=== PATIENT | female | born 1980 | race Caucasian/White ===

== ENCOUNTER 2022-04-03 10:46 | Outpatient (REF) | payer MEDICARE, MEDICAID, SELFPAY ==
--- NOTE | ~2022-04-03 | MM_ITS ---
EXAMINATION: MM SCREENING DIGITAL BREAST TOMOSYNTHESIS, BILATERAL CLINICAL INFORMATION: Screening. Asymptomatic. Age 41. No prior breast imaging. Family history breast cancer, maternal grandmother. The lifetime risk of breast cancer based on the Tyrer-Cuzick Model is 11%. COMPARISON: None (current study represents initial baseline exam). TECHNIQUE: Digital breast tomosynthesis is performed in both the craniocaudal and mediolateral oblique views along with computer-aided detection (CAD). Synthesized 2D images are generated from the tomosynthesis. Additional bilateral CC and left MLO view are provided. FINDINGS: There are scattered areas of fibroglandular density (ACR BI-RADS breast composition Category b). There are no significant masses, abnormal calcifications, or other abnormalities. The axilla and skin contours are unremarkable. MM/MM tomosynthesis screening BI IMPRESSION: No mammographic evidence of malignancy. ASSESSMENT: BI-RADS 1: Negative RECOMMENDATION: Routine annual mammography screening. This patient's information was entered into a reminder system with a target due date for their next mammogram.
== END 2022-04-03 10:47 | disposition home or self-care (01) ==
LOC: HO.MAMMO 10:46
PROVIDERS: PCP Physician Assistant; Visit Provider Physician Assistant
DX: Z12.31 Encounter for screening mammogram for malignant neoplasm of breast (principal)
CPT/HCPCS: 77063; 77067

== ENCOUNTER 2022-05-22 10:59 | Outpatient (REF) | payer MEDICARE, MEDICAID, SELFPAY ==
[2022-05-22 11:54] LABS: Hemoglobin 12.8 g/dl (12.0-16.0); Mean Corpuscular Hemoglobin 26.4 pg (27.0-33.0); Mean Corpuscular Volume 82.6 fL (80.0-98.0); Platelet Count 229 X10*3/uL (160-400); Red Blood Count 4.84 X10*6/uL (4.20-5.50); White Blood Count 4.7 X10*3/uL (4.8-10.8)
[2022-05-22 12:02] LABS: Estimated Average Glucose 114 mg/dL; Hemoglobin A1c % 5.6 %
[2022-05-22 12:51] LABS: TSH reflex Free T4 2.03 uIU/mL (0.32-4.0)
[2022-05-22 13:30] LABS: Alanine Aminotransferase 36 U/L (0-31); Albumin Level 4.3 g/dL (3.5-5.0); Alkaline Phosphatase 115 U/L (39-117); Anion Gap 12 (12-20); Aspartate Amino Transferase 23 U/L (5-31); Bilirubin Total 0.3 mg/dL (0.0-1.0); Blood Urea Nitrogen 15 mg/dL (9-16); Calcium 9.1 mg/dL (8.4-10.2); Carbon Dioxide 23 mmol/L (22-29); Chloride 108 mmol/L (96-108); Cholesterol 183 mg/dL; Estimated Glomerular Filt Rate > 60; Glucose Fasting 101 mg/dL (60-99); HDL Cholesterol 45 mg/dL; LDL Cholesterol Calculated 121 mg/dl; Potassium 4.5 mmol/L (3.3-5.1); Sodium 138 mmol/L (135-145); Triglycerides 88 mg/dL
== END 2022-05-22 11:00 | disposition home or self-care (01) ==
LOC: HO.LAB 10:59
PROVIDERS: PCP Physician Assistant; Visit Provider Physician Assistant
DX: Z13.29 Encounter for screening for other suspected endocrine disorder (principal); Z13.220 Encounter for screening for lipoid disorders; E66.09 Other obesity due to excess calories; Z68.35 Body mass index [BMI] 35.0-35.9, adult; I10 Essential (primary) hypertension
CPT/HCPCS: 36415; 80053; 80061; 83036; 84443; 85027

== ENCOUNTER 2022-05-29 10:50 | Outpatient (REF) | payer MEDICARE, MEDICAID, SELFPAY ==
--- NOTE | ~2022-05-29 | US_ITS ---
EXAMINATION: US PELVIS CLINICAL INFORMATION: Pain COMPARISON: None TECHNIQUE: Ultrasound of the pelvis is performed using both transabdominal and transvaginal transducers along with Doppler. Transvaginal imaging is performed due to inadequate visualization transabdominally. FINDINGS: Uterus: The uterus is anteverted and measures 12.5 x 4.5 x 6.4 cm in dimension. No focal uterine lesion is seen. Endometrial thickness is upper normal measuring 1.7 cm. There are prominent vessels seen in the cervix. The ovaries are normal-appearing. The right ovary measures 3 x 1.4 x 1.9 cm. The left ovary measures 3.7 x 2.1 x 2.7 cm. There is a small 1.7 x 1.4 x 2 cm simple left ovarian cyst. There is no fluid in the pelvis. US/US pelvic and transvaginal IMPRESSION: Prominent vessels seen in the cervix otherwise unremarkable exam.
== END 2022-05-29 10:51 | disposition home or self-care (01) ==
LOC: HO.US 10:50
PROVIDERS: Visit Provider Physician Assistant
DX: R10.2 Pelvic and perineal pain (principal); N83.209 Unspecified ovarian cyst, unspecified side
CPT/HCPCS: 76830; 76856

== ENCOUNTER 2023-01-10 10:20 | Outpatient (REF) | payer MEDICARE, MEDICAID, SELFPAY ==
--- NOTE | ~2023-01-10 | XR_ITS ---
EXAMINATION: XR KNEE, LEFT CLINICAL INFORMATION: Left knee pain. COMPARISON: None TECHNIQUE: Four views of the left knee. FINDINGS: There is no acute fracture or dislocation. The joint spaces are unremarkable. There is no joint effusion. Mild prepatellar soft tissue swelling. XR/XR knee LT 4V IMPRESSION: Mild prepatellar soft tissue swelling without acute underlying osseous abnormality.
--- NOTE | ~2023-01-10 | XR_ITS ---
EXAMINATION: XR FOREARM, RIGHT CLINICAL INFORMATION: Left forearm pain status injury. COMPARISON: None TECHNIQUE: AP and lateral views of the right forearm were obtained. FINDINGS: A corticated osseous density seen along the medial margin of the proximal ulnar articular surface with the humerus. The radius is intact with the soft tissues are unremarkable. XR/XR forearm RT 2V IMPRESSION: Corticated osseous density in the proximal ulna at the elbow articulation is not appear acute and could represent a nonunited ossification center or old fracture. Correlate with physical exam and trauma history.
--- NOTE | ~2023-01-10 | XR_ITS ---
EXAMINATION: CR X-RAY HAND AND WRIST RIGHT CLINICAL INFORMATION: Right hand pain status post injury. COMPARISON: None TECHNIQUE: 3 views of the right hand were obtained. FINDINGS: There is no acute fracture or dislocation. The carpal bones are normally aligned. The visualized distal radius and ulna are intact. The surrounding soft tissues are unremarkable. XR/XR hand wrist RT IMPRESSION: Unremarkable right hand and wrist.
== END 2023-01-10 10:21 | disposition home or self-care (01) ==
LOC: HO.HMGCX 10:20
PROVIDERS: PCP Physician Assistant; Visit Provider Internal Medicine
DX: S59.911A Unspecified injury of right forearm, initial encounter (principal); S69.91XA Unspecified injury of right wrist, hand and finger(s), initial encounter; S89.92XA Unspecified injury of left lower leg, initial encounter; W19.XXXA Unspecified fall, initial encounter
CPT/HCPCS: 73090; 73110; 73130; 73564

== ENCOUNTER 2023-10-03 10:55 | Outpatient (AMB) | payer MEDICARE, MEDICAID, SELFPAY ==
[2023-10-03 11:26] VITALS: BP 148/96; PULSE 68; O2SAT 98; BMI 41.2
--- NOTE | 2023-10-03 11:26 | A.OFFPC_ITS ---
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 Patient of Gavin Mcintyre presents today for right ankle and right hand pain with swelling status post fall 8 months ago review of the notes patient was seen in the walk-in clinic. Fell arm got stuck in the railing, and had to pull it out. Xrays were obtained negative for acute fracture. Patient reports ongoing right hand pain and occasionally hand swelling and difficulty with making a fist. Patient also reports right foot pain occasional swelling after fall states she feels like she twisted on the steps. Will obtain right foot and right hand x-rays to further evaluate. Patient reports pain at times is a 6 at a 10, does not take any [id number] medications for this. Patient reports that she ran out of her atenolol over month ago, blood pressure elevated office today 148/96, will send one-month supply of atenolol and patient advised to schedule annual physical appointment with primary care. Patient advised that schedule follow-up appointment with PCP. [facility] Social History Housing: Apartment Alcohol intake: current Alcohol intake frequency: holidays/special occasions only Alcohol type: beer Patient Tobacco Use Status: Current someday Tobacco user Cigarettes Per Day: 3 e-Cigarette/Vaping Use: Never Used Substance Use Type: Marijuana service: No Current occupational status: unemployed Cognitive needs: No Hearing needs: No Vision needs: No Questionnaire Thrive Questionnaire Date Thrive assessed: 03/29/22 AUDIT C Alcohol Use Questionnaire (AUDIT-C) 1. How often do you have a drink containing alcohol?: Monthly or less 2. How many drinks containing alcohol do you have on a typical day when you are drinking?: 1 or 2 3. How often do you have six or more drinks on one occasion?: Never Total Score: 1 Physical exam (Primary Care) Vital Signs: Last Vital Signs Pulse 68 10/03/23 11:26 BP 148/96 H 10/03/23 11:26 Pulse Ox 98 10/03/23 11:26 Oxygen Delivery Method Room Air 10/03/23 11:26 BMI result Body Mass Index 41.2 Tobacco/Smoking Status: Tobacco use Status Tobacco use date assessed 10/03/23 10/03/23 11:32 Patient Tobacco Use Status Current someday Tobacco 10/03/23 11:32 e-Cigarette/Vaping Use Never Used 10/03/23 11:32 Thrive Assessment: Date of Thrive Assessment Date Thrive assessed 03/29/22 10/03/23 11:32 Assessment and Plan Assessment & Plan (1) Right hand pain: Code(s): M79.641 - Pain in right hand Plan: Right hand x-ray ordered patient advised to take [id number] ibuprofen as needed for pain and inflammation. Will referred to occupational therapy. (2) Right foot pain: Code(s): M79.671 - Pain in right foot Plan: Right foot x-ray ordered. Can take [id number] ibuprofen as needed with food for pain and inflammation. (3) HTN (hypertension): Code(s): I10 - Essential (primary) hypertension Qualifiers: Hypertension type: primary hypertension Qualified Code(s): I10 - Essential (primary) hypertension Plan: One-month supply of atenolol given to patient. Follow low-salt diet exercise. Blood pressure goal less than 140/90 Plan Follow-up with PCP. Orders: Orders OT Evaluation and Treatment Today M79.641 - Pain in right hand, S69.91XA - Unspecified injury of right wrist, hand and finger(s), initial encounter XR hand RT 2V Today M79.641 - Pain in right hand XR foot RT 2V Today M79.671 - Pain in right foot Medications: New atenolol 25 mg PO DAILY 30 tabs 0RF Discontinued atenolol Discontinued Reason: Doctor's Order TAKE 1 TABLET BY MOUTH EVERY DAY FOR 30 DAYS 10 tabs 0RF I10 - Essential (primary) hypertension Coding Level of Care Code Est Pt Level 3 (68945) Diagnoses Right hand pain M79.641 Right foot pain M79.671 Primary hypertension I10 Hypertension type: primary hypertension
== END 2023-10-03 11:50 | disposition home or self-care (01) ==
PROVIDERS: PCP Physician Assistant; Visit Provider Nurse Practitioner Family
DX: M79.641 Pain in right hand (principal); M79.671 Pain in right foot; I10 Essential (primary) hypertension
CPT/HCPCS: 99213

== ENCOUNTER 2023-10-03 12:01 | Outpatient (REF) | payer MEDICARE, MEDICAID, SELFPAY ==
--- NOTE | ~2023-10-03 | XR_ITS ---
EXAMINATION: XR HAND, RIGHT XR FOOT, RIGHT CLINICAL INFORMATION: Pain in right hand and foot. COMPARISON: Right hand 01/10/2023. TECHNIQUE: 3 views of the right hand were obtained. 3 views of the right foot were obtained. FINDINGS: RIGHT HAND: Mild degenerative changes in the 1st carpometacarpal joint with joint space narrowing and hypertrophic change. Bone mineralization is normal. Mild degenerative changes with mild hypertrophic change in scattered MCP and IP joints. RIGHT FOOT: Moderate calcification along the dorsal aspect of the calcaneus at the site of the Achilles tendon insertion. Attenuation of the 5th metacarpal head with flattening, deformity and hypertrophic change of subjacent articular surfaces and medial subluxation of the proximal phalange. Faint calcification in the soft tissues medial to the distal shaft of the 5th metatarsal. XR/XR foot RT 2V IMPRESSION: 1. Mild degenerative changes right hand. 2. Attenuation and subluxation with associated changes as described at the 5th metatarsophalangeal joint. Correlation with the clinical exam recommended to determine further management. Recommend follow up imaging in 10-14 days if fracture is suspected.
--- NOTE | ~2023-10-03 | XR_ITS ---
EXAMINATION: XR HAND, RIGHT XR FOOT, RIGHT CLINICAL INFORMATION: Pain in right hand and foot. COMPARISON: Right hand 01/10/2023. TECHNIQUE: 3 views of the right hand were obtained. 3 views of the right foot were obtained. FINDINGS: RIGHT HAND: Mild degenerative changes in the 1st carpometacarpal joint with joint space narrowing and hypertrophic change. Bone mineralization is normal. Mild degenerative changes with mild hypertrophic change in scattered MCP and IP joints. RIGHT FOOT: Moderate calcification along the dorsal aspect of the calcaneus at the site of the Achilles tendon insertion. Attenuation of the 5th metacarpal head with flattening, deformity and hypertrophic change of subjacent articular surfaces and medial subluxation of the proximal phalange. Faint calcification in the soft tissues medial to the distal shaft of the 5th metatarsal. XR/XR hand RT 2V IMPRESSION: 1. Mild degenerative changes right hand. 2. Attenuation and subluxation with associated changes as described at the 5th metatarsophalangeal joint. Correlation with the clinical exam recommended to determine further management. Recommend follow up imaging in 10-14 days if fracture is suspected.
== END 2023-10-03 12:02 | disposition home or self-care (01) ==
LOC: HO.XRAY 12:01
PROVIDERS: PCP Physician Assistant; Visit Provider Nurse Practitioner Family
DX: M79.671 Pain in right foot (principal); M79.641 Pain in right hand
CPT/HCPCS: 73120; 73620

== ENCOUNTER 2023-10-31 10:41 | Outpatient (AMB) | payer MEDICARE, MEDICAID, SELFPAY ==
[2023-10-31 11:05] VITALS: BP 140/100; BMI 41.0
--- NOTE | 2023-10-31 11:05 | A.OFFPC_ITS ---
Vital Signs 3 10/31/23 11:05 Height 5 ft 9 in Weight 278 lb BMI 41.0 BP 140/100 H Blood Pressure Location Lt brachial Position Sitting Pulse Source Pulse Oximeter Oxygen Delivery Method Room Air Intake Visit Reasons: Chest Pain Intake Note: The individual has arrived with a three-month history of chest pain, along with a tingling sensation and numbness experienced in both arms. Complaint Clerk Required: No Accompanied by: Self / Same As Patient Allergies latex [LATEX] Allergy (Unknown, Verified 10/31/23 14:29) ITCHING Latex Allergy (Unknown, Uncoded 10/03/23 11:29) Unknown Medication List - Last Reconciled 10/31/23 by Can Mcintyre PA-C atenolol 25 mg PO DAILY blood pressure kit-extra large As directed hydrochlorothiazide 12.5 mg PO DAILY 30 days meloxicam 15 mg PO DAILY 30 days Tobacco use date assessed: 10/03/23 HPI Chest Pain 2 HPI0 Details Patient is a 43-year-old female here today for a follow-up visit. Patient has not been seen since 2019. Patient has a past medical history significant for hypertension, major depressive disorder, obesity. -chest pain---> Reports having chest julianna n intermittently over the last 3 months. Blood pressure elevated today. Has been experienced more anxiety as of late as she is trying to take care of for children at home. PLAN: Will send for cardiac stress testing to evaluate for cardiac ischemia on physical exertion . Right hand and wrist pain: Reports in January 2023 she injured her right wrist and hand due to a fall. 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 X-ray did show mild arthritis in her hand. Also reports having right foot and ankle pain worse with long periods of standing. Did have an x-ray of her foot recently did did show subluxation in the 5th metatarsal region. 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 .. Hypertension: Noted to have elevated blood pressures today in office. Has been compliant with her atenolol use though blood pressure continues to be elevated. Does report having some intermittent chest pains. .. [facility] Social History Housing: Apartment Alcohol intake: current Alcohol intake frequency: holidays/special occasions only Alcohol type: beer Patient Tobacco Use Status: Current someday Tobacco user Cigarettes Per Day: 3 e-Cigarette/Vaping Use: Never Used Substance Use Type: Marijuana service: No Current occupational status: unemployed Cognitive needs: No Hearing needs: No Vision needs: No Questionnaire Thrive Questionnaire Date Thrive assessed: 03/29/22 Review of Systems Const Denies headache(s) Eyes Denies loss of vision ENT Denies vertigo, Denies dizziness, Denies headache(s) and Denies sore throat Card Denies chest pain, Denies leg edema and Denies lightheadedness Resp Denies cough, Denies hemoptysis and Denies wheezing GI Denies abdominal pain, Denies melena, Denies constipation, Denies diarrhea and Denies vomiting Denies urinary frequency, Denies dysuria and Denies urinary urgency Musc Denies arthralgias, Denies joint swelling, Denies numbness and Denies tingling Neuro Denies Abnormal speech present, Denies behavioral changes, Denies vertigo, Denies dizziness, Denies headache(s), Denies loss of vision, Denies memory loss, Denies numbness and Denies tingling Psych Denies anxiety, Denies behavioral changes, Denies depression, Denies memory loss and Denies panic attacks Kavon/Lymph Denies easy bleeding and Denies easy bruising Aller/Immun Denies wheezing Physical exam (Primary Care) Vital Signs: Last Vital Signs BP 140/100 H 10/31/23 11:05 Oxygen Delivery Method Room Air 10/31/23 11:05 BMI result Body Mass Index 41.0 Tobacco/Smoking Status: Tobacco use Status Tobacco use date assessed 10/03/23 10/31/23 11:06 Patient Tobacco Use Status Current someday Tobacco 10/31/23 11:06 e-Cigarette/Vaping Use Never Used 10/31/23 11:06 Thrive Assessment: Date of Thrive Assessment Date Thrive assessed 03/29/22 10/31/23 11:06 Const General: healthy appearing, no acute distress, alert and awake Nutritional Appearance: well nourished Orientation/consciousness: oriented to person, oriented to place and oriented to time HENMT Ears: TM's normal bilaterally General nose exam: Normal nasal mucous membranes and turbinates present Eyes Conjunctivae: conjunctivae normal Sclerae: sclerae normal Pupils: Equal, round and reactive pupils present Neck Neck: Yes no lymphadenopathy and Yes no JVD Thyroid: Thyroid normal Carotids: no bruits Resp Effort & Inspection: normal respiratory effort and not tachypneic Auscultation: no crackles, no rales, no rhonchi and no wheezes Cardio Rate: regular rate Rhythm: regular rhythm Heart sounds: no murmurs and normal S1 and S2 GI Palpation (GI): Soft to palpation, nontender, no hepatomegaly and no splenomegaly Auscultation: normal bowel sounds Skin General skin exam: no rashes or lesions noted and dry skin Neuro General: oriented to person, oriented to place and oriented to time Cranial nerves: Yes Equal, round and reactive pupils present Speech: No Abnormal speech present Gait exam (Neuro): Normal gait present Motor exam (neuro): no tremor noted Extrem Right upper extremity: full ROM Left upper extremity: full ROM Hand/finger images: 2 1. NOTABLY SWOLLEN OVER THE 2ND DIGIT. 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 Right lower extremity: full ROM; no edema Left lower extremity: full ROM; no edema Psych Mental Status: mental status grossly normal Speech and movement: Normal speech and movement present Affect: normal affect Attitude: cooperative Thought process: Normal thought process present Office Procedures EKG Details: See scanned in document [id number], Complete Assessment and Plan Assessment & Plan (1) Chest pain: Code(s): R07.9 - Chest pain, unspecified Qualifiers: Chest pain type: unspecified Qualified Code(s): R07.9 - Chest pain, unspecified Plan: Unclear etiology to patient's chest pain though has been evident per patient over the last 3 months and has been intermittent. On physical exam it is reproducible to pressing over the left upper chest. Likely related to her anxiety and or her elevated blood pressure readings. Will add on hydrochlorothiazide to her blood pressure regime to for better blood pressure control. Advised to monitor blood pressure at home with goal blood pressure be below 140/90 Otherwise will send for cardiac stress testing to evaluate for any cardiac ischemia on physical exertion. 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 Will supply patient with meloxicam to use on a p.r.n. basis for the inflammation and pain. (3) Right wrist tendinitis: Code(s): M77.8 - Other enthesopathies, not elsewhere classified (4) Impaired glucose metabolism: Code(s): R73.09 - Other abnormal glucose Plan: Does have a history of impaired glucose metabolism. Will recheck her fasting blood sugar and A1c to evaluate Orders: Orders 2 CA stress test Today R07.9 - Chest pain, unspecified OT Evaluation and Treatment Today M79.641 - Pain in right hand Comprehensive [place]. Panel Fast Today I10 - Essential (primary) hypertension Hemoglobin A1c Today I10 - Essential (primary) hypertension, R73.09 - Other abnormal glucose Microalbumin, Random (w Creat) Today I10 - Essential (primary) hypertension Complete Blood Count no Diff Today I10 - Essential (primary) hypertension AMB EKG-In Office Today R07.9 - Chest pain, unspecified, Z01.818 - Encounter for other preprocedural examination Referrals 2 Orthopedics Referral M77.8 - Other enthesopathies, not elsewhere classified, M79.641 - Pain in right hand Medications: New 2 hydrochlorothiazide 12.5 mg PO DAILY 30 tabs 3RF 30 days I10 - Essential (primary) hypertension meloxicam 15 mg PO DAILY 30 tabs 2RF 30 days M77.8 - Other enthesopathies, not elsewhere classified Coding Level of Care Code Est Pt Level 4 (59067) Diagnoses Chest pain, unspecified type R07.9 Chest pain type: unspecified Right hand pain M79.641 Right wrist tendinitis M77.8 Impaired glucose metabolism R73.09 CPT Codes EKG - CPT: 44088-[id number], Complete ([id number])
== END 2023-10-31 12:07 | disposition home or self-care (01) ==
PROVIDERS: PCP Physician Assistant; Visit Provider Physician Assistant
DX: R07.9 Chest pain, unspecified (principal); M79.641 Pain in right hand; M77.8 Other enthesopathies, not elsewhere classified; R73.09 Other abnormal glucose
CPT/HCPCS: 93000; 99214

== ENCOUNTER 2023-11-12 09:57 | Outpatient (REF) | payer MEDICARE, MEDICAID, SELFPAY ==
[2023-11-15 02:04] LABS: HPV mRNA E6/E7 rflx Not Detected (Not Detected)
== END 2023-11-12 09:58 | disposition home or self-care (01) ==
LOC: HO.LNP 09:57
PROVIDERS: PCP Physician Assistant; Visit Provider Obstetrics & Gynecology
DX: Z01.419 Encounter for gynecological examination (general) (routine) without abnormal findings (principal); Z11.51 Encounter for screening for human papillomavirus (HPV)
CPT/HCPCS: 87624; 88142; G0101

== ENCOUNTER 2023-11-12 09:57 | Outpatient (AMB) | payer MEDICARE, MEDICAID, SELFPAY ==
--- NOTE | 2023-11-12 10:22 | A.OFFVIS_ITS ---
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 No complaints. Last Pap/HPV was negative in 03/18 Last Mammogram was BI-RADS 1 in 04/22 No previous screening colonoscopy PFSH Medical History Bipolar disorder HTN (hypertension) Surgical History H/O hernia repair Family History Maternal Grandmother Diabetes Heart disease HTN (hypertension) Cervical cancer Sister Lupus Social History Household Members: Children Housing: Apartment Alcohol intake: current Alcohol intake frequency: holidays/special occasions only Alcohol type: beer Patient Tobacco Use Status: Current someday Tobacco user Cigarettes Per Day: 3 Years Smoked: 30 e-Cigarette/Vaping Use: Never Used Substance Use Type: Marijuana service: No Current occupational status: unemployed Sexual orientation: Straight/Heterosexual Gender identity: Female Cognitive needs: No Hearing needs: No Vision needs: No Female Reproductive History Menstrual Total pregnancies: 8 Full term: 5 Number of Living Children: 5 Ab induced: 1 Ab spontaneous: 2 Date of last pap smear: 03/22/17 Date of Mammogram: 04/03/22 Review of Systems Const All systems reviewed & are unremarkable except as noted in HPI and below Card Reports as per HPI Resp Reports as per HPI GI Reports as per HPI and Reports no additional complaints Reports as per HPI Physical Exam Vital Signs: Last Vital Signs BP 136/84 11/12/23 10:23 BMI result Body Mass Index 41.0 Const General: cooperative, healthy appearing and comfortable Chest Chest palpation & inspection: normal inspection of the chest and normal palpation of entire chest wall Breast/axilla inspection: normal inspection of the breasts and normal inspection of the axillae Breast/axilla palpation: normal palpation of the breasts, normal palpation of the axillae and no axillary lymphadenopathy Resp Effort & Inspection: normal respiratory effort Auscultation: clear to auscultation bilaterally Percussion: percussion normal Cardio Palpation: normal PMI Rate: regular rate Rhythm: regular rhythm Heart sounds: no murmurs and no rubs Peripheral pulses: Peripheral pulses 2+ throughout GI Inspection: Yes normal to inspection Palpation (GI): Soft to palpation, nontender, no guarding, not rigid and No hepatosplenomegaly present Percussion: Yes normal to percussion Auscultation: normal bowel sounds Rectal Exam - Female: deferred General: Yes bladder normal to palpation External Female Exam: No lesion Speculum Exam - Vagina: normal appearance of the vagina, normal palpation, normal vaginal discharge and not erythematous Speculum Exam - Cervix: normal appearance of the cervix and normal palpation Bimanual exam- vagina & uterus: normal bimanual exam, normal palpation, uterine size normal, bladder normal to palpation, consistency normal and normal palpation Bimanual Exam- Adnexa, other: normal adnexae, no masses and no tenderness Assessment & Plan Assessment & Plan (1) Well woman exam: Code(s): Z01.419 - Encounter for gynecological examination (general) (routine) without abnormal findings Plan: Co testing done. Counseled the patient about the recommended dietary allowance of 1200 mg of Calcium & 600 IU of vitamin D. Mammogram ordered. The patient was referred to GI for screening colonoscopy . The patient was instructed to perform monthly self-breast exams and schedule annual exam in a year. All questions answered and the patient verbalized understanding. Orders: Orders MM tomosynthesis screening BI Today Z12.31 - Encounter for screening mammogram for malignant neoplasm of breast Referrals Gastroenterology Referral Z12.11 - Encounter for screening for malignant neoplasm of colon Coding Level of Care Code Est Pt Prev Care 40-64y(98101) Diagnoses Well woman exam Z01.419
[2023-11-12 10:23] VITALS: BP 136/84; BMI 41.0
== END 2023-11-12 11:07 | disposition home or self-care (01) ==
PROVIDERS: PCP Physician Assistant; Visit Provider Obstetrics & Gynecology
DX: Z01.419 Encounter for gynecological examination (general) (routine) without abnormal findings (principal)
CPT/HCPCS: G0101; Q0091

== ENCOUNTER 2023-12-24 10:30 | Outpatient (RCR) | payer MEDICARE, MEDICAID, SELFPAY ==
--- NOTE | 2023-11-07 15:14 | MHC.OT.EP ---
[address] [phone] Occupational Therapy Plan of Care Patient Name: Mimi Solomon Date of Evaluation: 11/07/23 Diagnosis: Right wrist tendonitis Right hand pain Pain Location: Pain R wrist Current: 5-6/10 Best: 3/10 Worst: 8-9/10 Pain Score: 5 Pain Scale Used: Aggravating Factors: Forceful grasp, index finger flexion, repetitive use Alleviating Factors: Hot shower Has not trialed cream, heat or ice Assessment: Pt is a 43 y/o female who reports sustaining a slip and fall down the stairs in 2022 while holding her small child in her arms. Her right wrist and forearm got stuck in the railing as the weight of her and her child pulled on her arm. X-rays were negative for acute fracture or abnormalities. X-ray did show mild arthritis. She has some soft tissue swelling over the dorsal 2nd digit and metacarpal. Pt reports she wore a wrist brace for about a month, did not receive therapy. Pain and intermittent swelling has been persistent since then. On assessment, pt. presents with pain in right volar and dorsal wrist radiating in to 2nd digit, slight edema over MCP, and intermittent numbness. Wrist and forearm ROM is WNL's, gross grasp is decreased on the Right 50# compared to 70# on the left. Pt. would benefit from short term skilled OT for tendoitis related pain and return to PLOF. Frequency and Duration: The patient will be seen 2x/wk for 4 weeks Short Term Goals: IND with thermal modalities for pain mgt IND with HEP IND with orthosis wear as needed Fpc Goals: Pain free with IADLs and handwriting IND with progression of HEP Gross grasp >65# Quick DASH <25% Treatment Plan: Therapeutic Exercise Therapeutic Activity Home Exercise Program Splinting Patient Education Edema Control Ultrasound Paraffin Fluidotherapy MHP Cold Packs Joint Mobilization Soft Tissue Mobilization Kinesiotaping Other (see comments) Trial ionto for pain management Electronically Signed By: Zully Pagan MS OTR/L Please Sign and return to therapist. Thank you once again for your referral.
== END 2024-02-07 13:05 | disposition home or self-care (01) ==
LOC: HO.OT 10:30
PROVIDERS: PCP Physician Assistant; Visit Provider Physician Assistant
DX: S69.91XA Unspecified injury of right wrist, hand and finger(s), initial encounter (principal); M79.641 Pain in right hand
CPT/HCPCS: 29125; 97033; 97035; 97110; 97140; 97165; 97760

== ENCOUNTER 2023-12-25 10:44 | Outpatient (REF) | payer MEDICARE, MEDICAID, SELFPAY ==
[2023-12-25 13:35] LABS: Rheumatoid Factor < 13.0 IU/mL (<15.0)
[2023-12-31 11:19] LABS: Anti Nuclear Antibody Screen NEGATIVE (NEGATIVE)
== END 2023-12-25 10:45 | disposition home or self-care (01) ==
LOC: HO.LAB 10:44
PROVIDERS: PCP Physician Assistant; Visit Provider Physical Medicine & Rehabilitation
DX: M79.641 Pain in right hand (principal); M79.89 Other specified soft tissue disorders; S66.511A Strain of intrinsic muscle, fascia and tendon of left index finger at wrist and hand level, initial encounter; W10.9XXA Fall (on) (from) unspecified stairs and steps, initial encounter; Y93.01 Activity, walking, marching and hiking; Y92.9 Unspecified place or not applicable; Y99.9 Unspecified external cause status
CPT/HCPCS: 36415; 86038; 86431; 99202

== ENCOUNTER 2023-12-25 10:44 | Outpatient (AMB) | payer MEDICARE, MEDICAID, SELFPAY ==
--- NOTE | 2023-12-25 10:55 | MHC.OFFVIS ---
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 States her numbness it mainly on her thumb,index and middle finger. States she feel down a flight of stairs jan 2023 and that is when her symptoms started. Reports she has has constant swelling especially on her lateral aspect of her wrist. She explains her symptoms worsens in the night time. No EMG done. Allergies latex [LATEX] Allergy (Unknown, Verified 12/25/23 11:01) ITCHING Latex Allergy (Unknown, Uncoded 12/25/23 11:01) Unknown Medication List - Last Reconciled 12/25/23 by Chikis Pérez MD atenolol 25 mg PO DAILY blood pressure kit-extra large As directed hydrochlorothiazide 12.5 mg PO DAILY 30 days meloxicam 15 mg PO DAILY 30 days HPI HPI Comments History of Present Illness Details Right handed. Fell, hyperextension and pulling of right wrist above her on stairs, Jan 2023. No fracture seen on xray. Been to PT 12 sessions. Was given wrist splints to wear at night. Pain on right MCP and digit 2. Still swollen. 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 Reported numbness on all fingertips. Not dropping things. Worse pain after exertion. Difficulty with writing. [facility] Medical History Bipolar disorder HTN (hypertension) Surgical History H/O hernia repair Family History Maternal Grandmother Diabetes Heart disease HTN (hypertension) Cervical cancer Sister Lupus Social History (Updated 12/25/23 @ 11:01 by Josie Fiore [facility]) Household Members: Children Housing: Apartment Alcohol intake: current Alcohol intake frequency: holidays/special occasions only Alcohol type: beer Patient Tobacco Use Status: Current someday Tobacco user Cigarettes Per Day: 3 Years Smoked: 30 e-Cigarette/Vaping Use: Never Used Substance Use Type: Marijuana service: No Current occupational status: unemployed and disabled 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 MSK: Inspection reveals appropriate head and neck positioning. No pain with palpation over the neck musculature. Cervical ROM was full. Spurling's sign negative. Bilateral shoulder ROM WNL. No ligamentous laxity or crepitance. No increased effusion. Swelling noted right 1st and 2nd digits, tender on IP and MCP joints on these fingers. Unable to fully flex these digits. No intrinsic hand weakness noted. No atrophy noted. Rosa Maria test negative. Carpal compression test negative. Tinel sign negative. Strength is 5/5 in all muscle groups tested. No increased tone noted. Neurological: Neurologic examination of the upper and lower extremities was nonfocal with intact sensation, muscle stretch reflexes and without focal motor deficits . López?s negative bilaterally. Gait is non-antalgic without loss of balance. Results Reviewed Results Reviewed: Ordering Physician: Cristel Santos Date of Service: 10/03/23 Procedure(s): XR hand RT 2V Accession Number(s): [id number] cc: Can Mcintyre PA-C; Cristel Santos~ EXAMINATION: XR HAND, RIGHT XR FOOT, RIGHT CLINICAL INFORMATION: Pain in right hand and foot. COMPARISON: Right hand 01/10/2023. TECHNIQUE: 3 views of the right hand were obtained. 3 views of the right foot were obtained. FINDINGS: RIGHT HAND: Mild degenerative changes in the 1st carpometacarpal joint with joint space narrowing and hypertrophic change. Bone mineralization is normal. Mild degenerative changes with mild hypertrophic change in scattered MCP and IP joints. RIGHT FOOT: Moderate calcification along the dorsal aspect of the calcaneus at the site of the Achilles tendon insertion. Attenuation of the 5th metacarpal head with flattening, deformity and hypertrophic change of subjacent articular surfaces and medial subluxation of the proximal phalange. Faint calcification in the soft tissues medial to the distal shaft of the 5th metatarsal. XR/XR hand RT 2V IMPRESSION: 1. Mild degenerative changes right hand. 2. Attenuation and subluxation with associated changes as described at the 5th metatarsophalangeal joint. Correlation with the clinical exam recommended to determine further management. Recommend follow up imaging in 10-14 days if fracture is suspected. I reviewed records from the following: PCP Assessment & Plan Assessment & Plan (1) Hand swelling: Code(s): M79.89 - Other specified soft tissue disorders (2) Strain of intrinsic muscle of finger: Code(s): S66.519A - Strain of intrinsic muscle, fascia and tendon of unspecified finger at wrist and hand level, initial encounter Plan It has already been a year since injury. If she had injured soft tissue, that should have healed by now, although she says she didn't really rest them adequately. No fracture seen on xray. MRI pending, scheduled for 01/02/24. Advised to inform us after it is done so I can look out for results. Rule out other causes of finger swelling, such as inflammatory arthritis. Checking AWAIS and RF. Assessment and plan discussed with patient, and patient was agreeable. All questions were answered thoroughly. Chikis Pérez MD, BECKY Board Certified, [place] [employer] and [employer] (ABPMR) Board Certified, [place] [employer] (ABEM) Orders: Orders AWAIS Reflex Titer and Pattern Today M79.89 - Other specified soft tissue disorders Rheumatoid Factor Today M79.89 - Other specified soft tissue disorders Coding Level of Care Code New Pt Level 4 (41339) Diagnoses Hand swelling M79.89 Strain of intrinsic muscle of finger S66.519A
[2023-12-25 10:56] VITALS: BMI 40.9
== END 2023-12-25 11:28 | disposition home or self-care (01) ==
PROVIDERS: PCP Physician Assistant; Visit Provider Physical Medicine & Rehabilitation
DX: M79.89 Other specified soft tissue disorders (principal); S66.519A Strain of intrinsic muscle, fascia and tendon of unspecified finger at wrist and hand level, initial encounter
CPT/HCPCS: 99204

== ENCOUNTER → 2024-02-03 10:00 | Outpatient (BNV) | payer MEDICARE, MEDICAID, SELFPAY | PROVIDERS: PCP Physician Assistant; Visit Provider Radiology Diagnostic Radiology | DX: Z12.31 Encounter for screening mammogram for malignant neoplasm of breast (principal) | CPT/HCPCS: 77063; 77067 ==

== ENCOUNTER 2024-02-03 10:08 | Outpatient (REF) | payer MEDICARE, MEDICAID, SELFPAY ==
--- NOTE | ~2024-02-03 | MM_ITS ---
EXAMINATION: MM SCREENING DIGITAL BREAST TOMOSYNTHESIS, BILATERAL CLINICAL INFORMATION: Screening. Asymptomatic. Patient has lump on left lateral anterosuperior breast after fall, hence patient is not concerned. COMPARISON: Mammography: 03/04/2022, baseline study. TECHNIQUE: Digital breast tomosynthesis is performed in both the craniocaudal and mediolateral oblique views along with computer-aided detection (CAD). Synthesized 2D images are generated from the tomosynthesis. FINDINGS: There are scattered areas of fibroglandular density (ACR BI-RADS breast composition Category b). There is an area of what appears to be fat necrosis in the left breast upper outer quadrant, anterior one third, resulting in a mild amount of skin dimpling, not previously seen. There is an area of fat necrosis is centrally lucent, with fat density, measuring approximately 4.4 x 2.6 x 1.7 cm (AP, TRV, CC) with surrounding rim of increased density and mild distortion in keeping with fat necrosis. These findings are new since the prior exam. Recommend six-month interval follow-up to assure appropriate evolution. There are no suspicious findings right breast. There are several lymph nodes in the right axillary tail, benign. There are no axillary abnormalities. MM/MM tomosynthesis screening BI IMPRESSION: No evidence of malignancy in either breast. Area of evolving fat necrosis in the upper outer left breast anterior one third with skin dimpling, as described above, probably benign. Recommend six-month interval diagnostic left breast mammography follow-up to assess for expected evolution. Recommend routine CC and MLO views, and spot compression CC and MLO views. No suspicious findings right breast. ASSESSMENT: BI-RADS BI-RADS 3 - Probably benign finding(s) - 6 month follow-up suggested RECOMMENDATION: 6 month interval follow-up mammography left breast. 6 Month F/U This examination should not preclude the clinical evaluation of a suspicious palpable abnormality. This patient's information was entered into a reminder system with a target due date for their next mammogram.
== END 2024-02-03 10:09 | disposition home or self-care (01) ==
LOC: HO.MAMMO 10:08
PROVIDERS: PCP Physician Assistant; Visit Provider Obstetrics & Gynecology
DX: Z12.31 Encounter for screening mammogram for malignant neoplasm of breast (principal)
CPT/HCPCS: 77063; 77067

== ENCOUNTER 2024-12-10 09:42 | Outpatient (AMB) | payer MEDICARE, MEDICAID, SELFPAY ==
--- NOTE | 2024-12-10 09:47 | MHC.PC.OV ---
Intake Visit Reasons: med follow up Allergies latex [LATEX] Allergy (Unknown, Verified 12/25/23 11:01) ITCHING Latex Allergy (Unknown, Uncoded 12/25/23 11:01) Unknown Tobacco use date assessed: 10/03/23 [facility] Medical History Bipolar disorder HTN (hypertension) Surgical History H/O hernia repair Family History Maternal Grandmother Diabetes Heart disease HTN (hypertension) Cervical cancer Sister Lupus Social History (Updated 12/25/23 @ 11:01 by Josie Fiore [facility]) Household Members: Children Housing: Apartment Alcohol intake: current Alcohol intake frequency: holidays/special occasions only Alcohol type: beer Patient Tobacco Use Status: Current someday Tobacco user Cigarettes Per Day: 3 Years Smoked: 30 e-Cigarette/Vaping Use: Never Used Substance Use Type: Marijuana service: No Current occupational status: unemployed and disabled 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
[2024-12-10 09:50] VITALS: BP 162/118; PULSE 88; O2SAT 99; BMI 40.8
--- NOTE | 2024-12-10 09:50 | A.OFFPC_ITS ---
Vital Signs 12/10/24 09:50 Height 5 ft 9 in Weight 276 lb 8 oz BMI 40.8 BP 162/118 H Blood Pressure Location Lt brachial Position Sitting Pulse 88 Pulse Source Pulse Oximeter Pulse Oximetry (%) 99 Oxygen Delivery Method Room Air Intake Visit Reasons: [place] for PE/Med review Correctional Counselor Required: No Accompanied by: Self / Same As Patient Allergies latex [LATEX] Allergy (Unknown, Verified 12/10/24 10:01) ITCHING Latex Allergy (Unknown, Uncoded 12/10/24 10:01) Unknown Medication List - Last Reconciled 12/10/24 by Can Mcintyre PA-C atenolol 25 mg PO DAILY 30 days blood pressure kit-extra large As directed hydrochlorothiazide 12.5 mg PO DAILY 30 days meloxicam 15 mg PO DAILY 30 days Tobacco use date assessed: 12/10/24 Dental Screening Dental Screen Date: 12/10/24 Did you have a dental visit in the last 12 months?: No Did you have a dental problem in the last 6 months where you did not have access to dental care?: No Was dental information given to patient?: Patient has dentist (pt has an scheduled appt coming up) HPI [place] for PE/Med review HPI Details Patient is a 44 year-old female here today for routine annual physical. . Patient has a past medical history significant for hypertension, major depressive disorder, obesity. Concern--> The patient disclosed a history of alcohol use disorder, now in remission, and recent use of street-obtained Adderall for focusing, citing a diagnosis of ADHD and bipolar disorder. Previously, she was concerned about family substance use and has a detailed understanding of addictive behaviors. The patient is also concerned about general wellness, seeking advice on balancing her medication regime and considering her lifestyle . Right hand and wrist pain: Reports in January 2023 she injured her right wrist and hand due to a fall. 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 X-ray did show mild arthritis in her hand. She reported concerns about carpal tunnel syndrome in her hands, primarily with swelling and numbness, and indicates worsening of symptoms. A history of potential degenerative disc disease is also possible, given the chronic back discomfort described. She did do occupational therapy though felt it was not effective for her. .. Hypertension: Noted to have elevated blood pressures today in office. Has been compliant with her atenolol use though blood pressure continues to be elevated. She has not been using hydrochlorothiazide . PLAN: Will start using hydrochlorothiazide for better blood pressure control. 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 model Colorectal cancer screening: [facility] Medical History Bipolar disorder HTN (hypertension) Surgical History H/O hernia repair Family History Maternal Grandmother Diabetes Heart disease HTN (hypertension) Cervical cancer Sister Lupus Social History (Updated 12/10/24 @ 10:13 by Can Mcintyre PA-C) Household Members: Children Housing: Apartment Alcohol intake: current Alcohol intake frequency: holidays/special occasions only Alcohol type: beer Patient Tobacco Use Status: Current someday Tobacco user Cigarettes Per Day: 3 Years Smoked: 30 e-Cigarette/Vaping Use: Never Used Substance Use Type: Marijuana service: No Current occupational status: unemployed and disabled 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 1. Little interest or pleasure in doing things: more than half the days 2. Feeling down, depressed, or hopeless: more than half the days 3. Trouble falling or staying asleep, or sleeping too much: not at all 4. Feeling tired or having little energy: more than half the days 5. Poor appetite or overeating: nearly every day 6. Feeling bad about yourself - or that you are a failure or have let yourself or your family down: more than half the days 7. Trouble concentrating on things, such as reading the newspaper or watching television: not at all 8. Moving or speaking so slowly that other people could have noticed. Or the opposite - being so fidgety or restless that you have been moving around a lot more than usual: not at all 9. Thoughts that you would be better off or of hurting yourself in some way: not at all Total score: 11 87554 - PHQ-9 Billing: Yes Source: Developed by Drs. Michael Botello, Kailyn Hinds, Nino Lees and colleagues, with an educational joanna from [employer]. Thrive Questionnaire Date Thrive assessed: 12/10/24 I am a: Patient What is your living situation today?: I have a steady place to live Within the past 12 months, did the food you bought not last and you didn't have the money to get more?: Never true Within the past 12 months, did you worry whether your food would run out before you got money to buy more?: Never true Do you have trouble paying for medicines?: No Do you have trouble getting transportation to medical appointments?: No Do you have trouble paying your heating and electricity bill?: No Do you have trouble taking care of your child, family member or friend?: No Do you have trouble with day-to-day activities such as bathing, preparing meals, shopping, managing finances, etc.?: No Are you currently unemployed and looking for a job?: No Are you interested in more education?: No Please select the resources that you would like help with: None Currently or been in a relationship where the following occur: No concerns reported THRIVE Score: 0 AUDIT C Alcohol Use Questionnaire (AUDIT-C) 1. How often do you have a drink containing alcohol?: 2-4 times a month 2. How many drinks containing alcohol do you have on a typical day when you are drinking?: 5 or 6 3. How often do you have six or more drinks on one occasion?: Less than monthly Total Score: 5 SAMUEL-7 AMB Questionnaire SAMUEL-7 Date SAMUEL - 7 assessed: 12/10/24 Feeling nervous, anxious, or on edge: 1 = Several days Not being able to stop or control worryin = Several days Worrying too much about different things: 1 = Several days Trouble relaxin = Several days Being so restless that it is hard to sit still: 1 = Several days Becoming easily annoyed or irritable: 0 = Not at all Feeling afraid as if something awful might happen: 0 = Not at all Total SAMUEL-7 score (0-4 normal; 5-9 mild; 10-14 moderate; 15-21 severe): 5 Source: Developed by Drs. Michael Botello, Kailyn Hinds, Nino Lees and colleagues, with an educational joanna from [employer]. SAMUEL-7 Assessment Billing SAMUEL-7 Assessment Tool: SMAUEL-7 Assessment 30892 Review of Systems Const Denies body aches, Denies chills, Denies excessive sweating, Denies fatigue, Denies fever(s) and Denies headache(s) Eyes Denies blurry vision ENT Denies dysphagia, Denies vertigo, Denies dizziness, Denies headache(s), Denies hearing loss and Denies tinnitus Card Denies chest pain, Denies chest pain with activity, Denies syncope, Denies irregular heart rhythm and Denies dyspnea Resp Denies chest congestion, Denies cough, Denies hemoptysis, Denies dyspnea and Denies wheezing GI Denies abdominal pain, Denies melena, Denies hematochezia, Denies coffee ground emesis, Denies dysphagia, Denies diarrhea, Denies nausea and Denies vomiting Denies urinary frequency, Denies dysuria, Denies urinary hesitancy and Denies urinary urgency Musc Denies arthralgias, Denies limited range of motion, Denies muscle cramps and Denies muscle weakness Skin/Breast Denies rash and Denies skin ulcer Neuro Denies Abnormal speech present, Denies confusion, Denies vertigo, Denies dizziness, Denies syncope, Denies headache(s), Denies memory loss and Denies seizure-like activity Psych Denies anxiety, Denies confusion, Denies depression, Denies memory loss, Denies panic attacks and Denies paranoia Endo Denies excessive sweating, Denies fatigue, Denies flushing, Denies polydipsia and Denies polyuria Aller/Immun Denies wheezing Physical exam (Primary Care) Vital Signs: Last Vital Signs Pulse 88 12/10/24 09:50 BP 162/118 H 12/10/24 09:50 Pulse Ox 99 12/10/24 09:50 Oxygen Delivery Method Room Air 12/10/24 09:50 BMI result Body Mass Index 40.8 BMI Assessment/Plan discussion: High BMI High, discussed plan: lifestyle, weight reduction, dietary and physical activity Tobacco/Smoking Status: Tobacco use Status Tobacco use date assessed 12/10/24 12/10/24 09:59 Patient Tobacco Use Status Current someday Tobacco 12/10/24 10:13 e-Cigarette/Vaping Use Never Used 12/10/24 10:13 Are you ready to quit: Yes Tobacco cessation counseling provided: Yes Items discussed: Nicotine replacement Relapse Prevention: discussed the importance of a supportive environment, discussed negative mood or depression after quitting, weight gain after smoking is common and discussed dietary, exercise and/or lifestyle changes Number of minutes spent counselin CPT code: 83025 - 4-10 Minutes PHQ-9: PHQ-9 Score PHQ-9: Total score 11 12/10/24 10:06 Thrive Assessment: Date of Thrive Assessment Date Thrive assessed 12/10/24 12/10/24 09:58 Currently or been in a relationship where the following occur: No concerns reported Const Other: Obese General: cooperative, comfortable, no acute distress, alert and awake; No confusion Orientation/consciousness: oriented to person, oriented to place, patient oriented x3 and No confusion HENMT Head: Yes normocephalic Ears: external ears normal and TM's normal bilaterally Face and sinus: No sinus tenderness Mouth: Normal oral and palatal mucosa present and tongue normal Teeth and gingiva: dentition normal and gingiva normal Throat: Yes posterior oropharynx normal, Yes tonsils normal and Yes uvula midline Eyes Conjunctivae: conjunctivae normal Sclerae: sclerae normal Pupils: Equal, round and reactive pupils present EOM: EOMs intact bilaterally Direct Ophthalmoscopy: No no photophobia Neck Neck: Yes no lymphadenopathy, No tender and Yes no JVD Thyroid: Thyroid normal Carotids: no bruits Chest Chest palpation & inspection: no tenderness Resp Effort & Inspection: normal respiratory effort, no audible wheezes, not labored and no stridor Auscultation: no crackles, no rales, no rhonchi and no wheezes Cardio Jugular venous distension: no JVD Rate: regular rate, not bradycardic and not tachycardic Rhythm: regular rhythm Bruits: no carotid bruits Peripheral pulses: Peripheral pulses 2+ throughout GI Inspection: Yes normal to inspection, No abdominal wall ecchymosis and No visible herniation Palpation (GI): Soft to palpation, nontender, no guarding, not rigid and No hepatosplenomegaly present Auscultation: normoactive bowel sounds General: Yes no CVA tenderness Back/Spine/Pelvis Back: no CVA tenderness and No back tenderness Cervical Spine: cervical ROM normal Thoracic/Lumbar Spine: thoracic and lumbar spine normal to inspection, straight leg raise negative bilaterally, No thoraco-lumbar ROM limited and No lumbar spinal tenderness Skin Lesions: no lesions Rashes: no rashes Wounds: no wounds Neuro General: oriented to person, oriented to place, patient oriented x3, CN's II-XI intact bilaterally and No confusion Cranial nerves: Yes Equal, round and reactive pupils present and Yes Normal accommodation reflex present Cognition (Neuro): normal cognition Speech: No Abnormal speech present Gait exam (Neuro): Normal gait present Motor exam (neuro): 5/5 motor strength present throughout Extrem Right upper extremity: full ROM; no cyanosis Left upper extremity: full ROM; no cyanosis Right lower extremity: no edema Left lower extremity: no edema Psych Appearance: grossly normal Mental Status: mental status grossly normal Affect: normal affect Attitude: cooperative Thought process: Normal thought process present Office Procedures Flu Questionnaire Does the patient have a severe egg allergy?: No Immunizations Fluarix Triv [id number] (PF) 45 mcg (15 mcg x 3)/0.5 mL IM syringe Performing Provider: Can Mcintyre PA-C Performing Location: [facility] – [place] [facility] Documented (not given) by: BARBARA Murrell on 12/10/24 09:58 Reason Not Given: Patient Refused Coding Level of Care Code Est Pt Prev Care 40-64y(90842) Diagnoses Annual physical exam Z00.00 Primary hypertension I10 Hypertension type: primary hypertension Cervical spine pain M54.2 Attention deficit hyperactivity disorder (ADHD), combined type F90.2 Attention deficit-hyperactivity disorder type: combined inattentive- hyperactive Paresthesia of hand, bilateral R20.2 Impaired glucose metabolism R73.09 Thoracic spine pain M54.6 Tobacco dependence F17.200 Additional Codes SAMUEL-7 Assessment Billing - SAMUEL-7 Assessment Tool: SAMUEL-7 Assessment 24272 ([id number]) PHQ-9 - 89519 - PHQ-9 Billing: Yes ([id number]) Vital Signs *Quality* - CPT code: 64418 - 4-10 Minutes ([id number]) Assessment & Plan Assessment & Plan (1) Annual physical exam: Code(s): Z00.00 - Encounter for general adult medical examination without abnormal findings Category: Medical Plan: Per HPI (2) HTN (hypertension): Code(s): I10 - Essential (primary) hypertension Category: Medical Qualifiers: Hypertension type: primary hypertension Qualified Code(s): I10 - Essential (primary) hypertension Plan: Patient's blood pressure elevated today in office. Advised on starting hydrochlorothiazide 12.5 mg for better blood pressure control. Advised on monitoring blood pressure at home with goal blood pressure to be below 140/90. Will likely consider starting an Collin for control of her blood pressure as well. (3) Cervical spine pain: Code(s): M54.2 - Cervicalgia Category: Medical Plan: Will get x-ray to start workup. (4) ADHD: Code(s): F90.9 - Attention-deficit hyperactivity disorder, unspecified type Category: Medical Qualifiers: Attention deficit-hyperactivity disorder type: combined inattentive- hyperactive Qualified Code(s): F90.2 - Attention-deficit hyperactivity disorder , combined type Plan: We delved into psychiatric health, touching on past ADHD and bipolar diagnosis and recent use of illicit Adderall for focus. I advised against its use due to hypertensive risks. Alternative non-stimulant medications were suggested. The conversation also covered her medication regimen for psychological health, seeking further psychiatrist evaluation to address mood and attention challenges safely. (5) Paresthesia of hand, bilateral: Code(s): R20.2 - Paresthesia of skin Category: Medical Plan: Will send for EMG testing to evaluate for bilateral upper extremity carpal tunnel or cubital tunnel syndrome. Will also refer to orthopedics for evaluation and possible cortisone injection for the hand arthritis (6) Impaired glucose metabolism: Code(s): R73.09 - Other abnormal glucose Category: Medical Plan: Patient does have history of impaired glucose metabolism. Has gained weight since last office visit. Will check a fasting blood sugar and A1c to evaluate for type 2 diabetes. (7) Thoracic spine pain: Code(s): M54.6 - Pain in thoracic spine Category: Medical Plan: X-ray has been ordered (8) Tobacco dependence: Code(s): F17.200 - Nicotine dependence, unspecified, uncomplicated Category: Medical Plan: Patient does understand she needs to continue to try to quit smoking. Offered her nicotine replacement though she declines my offers at this time. Orders: Orders Influenza [id number] Immunization Today Z23 - Encounter for immunization Complete Blood Count no Diff Today Z13.1 - Encounter for screening for diabetes mellitus Hemoglobin A1c Today R20.2 - Paresthesia of skin XR thoracic spine 3V Today M54.6 - Pain in thoracic spine NE electromyogram (EMG) Today R20.2 - Paresthesia of skin Microalbumin, Random (w Creat) Today I10 - Essential (primary) hypertension Comprehensive [place]. Panel Fast Today Z13.1 - Encounter for screening for diabetes mellitus XR cervical spine 3V Today M54.2 - Cervicalgia XR chest 2V Today F17.200 - Nicotine dependence, unspecified, uncomplicated Referrals Orthopedics Referral M77.8 - Other enthesopathies, not elsewhere classified Psychiatry Outpatient Consultation Service F90.9 - Attention-deficit hyperactivity disorder, unspecified type Medications: New atomoxetine (Strattera) 40 mg PO DAILY 21 caps 0RF 3 weeks F90.9 - Attention- deficit hyperactivity disorder, unspecified type Refilled blood pressure kit-extra large As directed 1 ea 0RF I10 - Essential (primary) hypertension
== END 2024-12-10 10:40 | disposition home or self-care (01) ==
PROVIDERS: PCP Physician Assistant; Visit Provider Physician Assistant
DX: Z00.00 Encounter for general adult medical examination without abnormal findings (principal); I10 Essential (primary) hypertension; M54.2 Cervicalgia; F90.2 Attention-deficit hyperactivity disorder, combined type; R20.2 Paresthesia of skin; R73.09 Other abnormal glucose; M54.6 Pain in thoracic spine; F17.210 Nicotine dependence, cigarettes, uncomplicated

== ENCOUNTER 2024-12-10 09:42 | Outpatient (REF) | payer MEDICARE, MEDICAID, SELFPAY ==
--- NOTE | ~2024-12-10 | XR_ITS ---
CLINICAL HISTORY: M54.6 - Pain in thoracic spine 4 views thoracic spine Comparison: None Findings: Normal alignment. No acute fractures or dislocation. Multiple level degenerative disc changes. IMPRESSION: No acute findings. This document has been electronically signed by: Arei Coffey MD on 12/11/2024 07:59:31
--- NOTE | ~2024-12-10 | XR_ITS ---
CLINICAL HISTORY: F17.200 - Nicotine dependence, unspecified, uncomplicated 2 view chest x-ray Comparison: None Findings: No consolidation or effusion. Normal size heart. No acute fracture. IMPRESSION: 1. No acute findings. This document has been electronically signed by: Arie Coffey MD on 12/11/2024 07:59:46
--- NOTE | ~2024-12-10 | XR_ITS ---
CLINICAL HISTORY: M54.2 - Cervicalgia 3 views cervical spine Comparison: None Findings: Normal vertebral body alignment. No acute fractures or dislocation. Multiple level degenerative disc change. No prevertebral soft tissue swelling. IMPRESSION: No acute findings. This document has been electronically signed by: Arie Coffey MD on 12/11/2024 08:00:20
== END 2024-12-10 09:43 | disposition home or self-care (01) ==
LOC: HO.XRAY 09:42
PROVIDERS: PCP Physician Assistant; Visit Provider Physician Assistant
DX: Z00.00 Encounter for general adult medical examination without abnormal findings (principal); I10 Essential (primary) hypertension; M54.2 Cervicalgia; F90.2 Attention-deficit hyperactivity disorder, combined type; R20.2 Paresthesia of skin; R73.09 Other abnormal glucose; M54.6 Pain in thoracic spine; F17.210 Nicotine dependence, cigarettes, uncomplicated; Z28.21 Immunization not carried out because of patient refusal
CPT/HCPCS: 71046; 72040; 72072; 96127; 99396

== ENCOUNTER → 2024-12-10 10:53 | Outpatient (BNV) | payer MEDICARE, MEDICAID, SELFPAY | PROVIDERS: PCP Physician Assistant; Visit Provider Specialist | DX: M54.6 Pain in thoracic spine (principal); M54.2 Cervicalgia; Z12.2 Encounter for screening for malignant neoplasm of respiratory organs; F17.200 Nicotine dependence, unspecified, uncomplicated | CPT/HCPCS: 71046; 72040; 72072 ==

== ENCOUNTER 2024-12-11 11:47 | Outpatient (REF) | payer MEDICARE, MEDICAID, SELFPAY ==
[2024-12-11 12:42] LABS: Hematocrit 40.3 % (37.0-47.0); Hemoglobin 13.2 g/dl (12.0-16.0); Mean Corpuscular HGB Conc 32.8 g/dl (31.0-35.0); Mean Corpuscular Hemoglobin 26.7 pg (27.0-33.0); Mean Corpuscular Volume 81.4 fL (80.0-98.0); Mean Platelet Volume 9.7 fL (9.4-12.3); Platelet Count 278 X10*3/uL (160-400); Red Blood Count 4.95 X10*6/uL (4.20-5.50); Red Cell Distribution Width 14.1 % (11.0-16.0); White Blood Count 4.5 X10*3/uL (4.8-10.8)
[2024-12-11 13:02] LABS: Estimated Average Glucose 111 mg/dL; Hemoglobin A1C 123.8008 umol/L; Hemoglobin A1c % 5.5 % (<6.0); Total Hemoglobin (HGBA1C) 3422.1902 umol/L
[2024-12-11 13:16] LABS: Alanine Aminotransferase 29 U/L (0-31); Albumin Level 4.4 g/dL (3.5-5.0); Alkaline Phosphatase 114 U/L (39-117); Anion Gap 11 (12-20); Aspartate Amino Transferase 24 U/L (5-31); Bilirubin Total 0.4 mg/dL (0.0-1.0); Blood Urea Nitrogen 15 mg/dL (9-16); Calcium 9.4 mg/dL (8.4-10.2); Carbon Dioxide 26 mmol/L (22-29); Chloride 107 mmol/L (96-108); Estimated Glomerular Filt Rate > 60; Glucose Fasting 103 mg/dL (60-99); Potassium 4.1 mmol/L (3.3-5.1); Sodium 140 mmol/L (135-145); Total Protein 7.4 g/dL (6.5-8.0)
[2024-12-11 13:28] LABS: Creatinine Urine 211.47 mg/dL; Microalbum/Creatinine Ratio Ur 19.8 ug/mg cr (<30)
== END 2024-12-11 11:48 | disposition home or self-care (01) ==
LOC: HO.LAB 11:47
PROVIDERS: PCP Physician Assistant; Visit Provider Physician Assistant
DX: R20.2 Paresthesia of skin (principal); Z13.1 Encounter for screening for diabetes mellitus; I10 Essential (primary) hypertension
CPT/HCPCS: 36415; 80053; 82043; 82570; 83036; 85027

== ENCOUNTER 2025-01-11 10:59 | Outpatient (AMB) | payer MEDICARE, MEDICAID, SELFPAY ==
--- NOTE | 2025-01-11 10:57 | A.OFFPC_ITS ---
Intake Visit Reasons: telehealth ( f/u ADHD) Research Clerk Required: No Information Interpreted: non-clinical & clinical Freelance Writer: Not Required per policy Accompanied by: Self / Same As Patient Allergies latex [LATEX] Allergy (Unknown, Verified 01/11/25 11:56) ITCHING bupropion [From Wellbutrin SR] Adverse Reaction (Intermediate, Verified 01/11/25 11:56) sleepiness Latex Allergy (Unknown, Uncoded 01/11/25 11:56) Unknown Medication List - Last Reconciled 01/11/25 by Can Mcintyre PA-C atenolol 25 mg PO DAILY 30 days atomoxetine (Strattera) 40 mg PO DAILY 3 weeks blood pressure kit-extra large As directed hydrochlorothiazide 12.5 mg PO DAILY 30 days meloxicam 15 mg PO DAILY 30 days Tobacco use date assessed: 12/10/24 Dental Screening Dental Screen Date: 12/10/24 HPI telehealth ( f/u ADHD) HPI Details Patient is a 44-year-old female being evaluated today via telephone. At last visit we discussed her ADHD symptoms and was started on Strattera 40 mg. She reports the Strattera has been a bit helpful as she has been able to focus a bit better though has been noting headaches. She is willing to try to go up on the dose of Strattera to 60 mg to see medication work better. As far as her blood pressure she reports she has been taking hydrochlorothiazide more consistently. She has been a bit more physically active riding her bike and getting a house more. PENDING SALE TO [facility] Medical History Bipolar disorder HTN (hypertension) Surgical History H/O hernia repair Family History Maternal Grandmother Diabetes Heart disease HTN (hypertension) Cervical cancer Sister Lupus Social History Household Members: Children Housing: Apartment Alcohol intake: current Alcohol intake frequency: holidays/special occasions only Alcohol type: beer Patient Tobacco Use Status: Current someday Tobacco user Cigarettes Per Day: 3 Years Smoked: 30 Packs per year/per ci.50 e-Cigarette/Vaping Use: Never Used Substance Use Type: Marijuana service: No Current occupational status: unemployed and disabled 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 1. Little interest or pleasure in doing things: not at all 2. Feeling down, depressed, or hopeless: not at all 3. Trouble falling or staying asleep, or sleeping too much: not at all 4. Feeling tired or having little energy: not at all 5. Poor appetite or overeating: not at all 6. Feeling bad about yourself - or that you are a failure or have let yourself or your family down: not at all 7. Trouble concentrating on things, such as reading the newspaper or watching television: not at all 8. Moving or speaking so slowly that other people could have noticed. Or the opposite - being so fidgety or restless that you have been moving around a lot more than usual: not at all 9. Thoughts that you would be better off or of hurting yourself in some way: not at all Total score: 0 Depression Screening Interpretation: Negative Depression Screening Done: Yes 16925 - PHQ-9 Billing: Yes Source: Developed by Drs. Michael Botello, Kailyn Hinds, Nino Lees and colleagues, with an educational joanna from [employer]. Thrive Questionnaire Date Thrive assessed: 01/11/25 I am a: Patient What is your living situation today?: I have a steady place to live Within the past 12 months, did the food you bought not last and you didn't have the money to get more?: Never true Within the past 12 months, did you worry whether your food would run out before you got money to buy more?: Never true Do you have trouble paying for medicines?: No Do you have trouble getting transportation to medical appointments?: No Do you have trouble paying your heating and electricity bill?: No Do you have trouble taking care of your child, family member or friend?: No Do you have trouble with day-to-day activities such as bathing, preparing meals, shopping, managing finances, etc.?: No Are you currently unemployed and looking for a job?: No Are you interested in more education?: No Please select the resources that you would like help with: None Currently or been in a relationship where the following occur: No concerns reported THRIVE Score: 0 AUDIT C Alcohol Use Questionnaire (AUDIT-C) 1. How often do you have a drink containing alcohol?: Never 3. How often do you have six or more drinks on one occasion?: Never Total Score: 0 SAMUEL-7 AMB Questionnaire SAMUEL-7 Date SAMUEL - 7 assessed: 01/11/25 Feeling nervous, anxious, or on edge: 0 = Not at all Not being able to stop or control worryin = Not at all Worrying too much about different things: 0 = Not at all Trouble relaxin = Not at all Being so restless that it is hard to sit still: 0 = Not at all Becoming easily annoyed or irritable: 0 = Not at all Feeling afraid as if something awful might happen: 0 = Not at all Total SAMUEL-7 score (0-4 normal; 5-9 mild; 10-14 moderate; 15-21 severe): 0 Source: Developed by Drs. Michael Botello, Kailyn Hinds, Nino Lees and colleagues, with an educational joanna from [employer]. SAMUEL-7 Assessment Billing SAMUEL-7 Assessment Tool: SAMUEL-7 Assessment 87311 Review of Systems Const Reports headache(s) Eyes Denies loss of vision ENT Denies vertigo, Denies dizziness, Reports headache(s) and Denies sore throat Card Denies chest pain, Denies leg edema and Denies lightheadedness Resp Denies cough, Denies hemoptysis and Denies wheezing GI Denies abdominal pain, Denies melena, Denies constipation, Denies diarrhea and Denies vomiting Denies urinary frequency, Denies dysuria and Denies urinary urgency Musc Denies arthralgias, Denies joint swelling, Denies numbness and Denies tingling Neuro Denies behavioral changes, Denies vertigo, Denies dizziness, Reports headache(s), Denies loss of vision, Denies memory loss, Denies numbness and Denies tingling Psych Denies anxiety, Denies behavioral changes, Denies depression, Denies memory loss and Denies panic attacks Kavon/Lymph Denies easy bleeding and Denies easy bruising Aller/Immun Denies wheezing Physical exam (Primary Care) Tobacco/Smoking Status: Tobacco use Status Tobacco use date assessed 12/10/24 01/11/25 10:58 Patient Tobacco Use Status Current someday Tobacco 01/11/25 10:58 e-Cigarette/Vaping Use Never Used 01/11/25 10:58 PHQ-9: PHQ-9 Score PHQ-9: Total score 0 01/11/25 11:51 Depression Screening Interpretation: Negative Thrive Assessment: Date of Thrive Assessment Date Thrive assessed 01/11/25 01/11/25 10:58 Currently or been in a relationship where the following occur: No concerns reported Telehealth Telehealth Telehealth Platform: Telephone Location of provider rendering services: practice address Location of patient: address on file Patient Identification confirmed using: Name, : Yes Telehealth method: voice only Patient verbally consented to treatment: Yes Patient verbally consented to billing insurance company: Yes Patient informed of any privacy concerns related to visit: Yes Minutes spent on Phone/Video with Pt.: 11 Coding Level of Care Code Tele Est Pt Level 4 (74236) Diagnoses Attention deficit hyperactivity disorder (ADHD), combined type F90.2 Attention deficit-hyperactivity disorder type: combined inattentive- hyperactive Primary hypertension I10 Hypertension type: primary hypertension Additional Codes SAMUEL-7 Assessment Billing - SAMUEL-7 Assessment Tool: SAMUEL-7 Assessment 23484 ([id number]) PHQ-9 - 83708 - PHQ-9 Billing: Yes ([id number]) Assessment & Plan Assessment & Plan (1) ADHD: Code(s): F90.9 - Attention-deficit hyperactivity disorder, unspecified type Category: Medical Qualifiers: Attention deficit-hyperactivity disorder type: combined inattentive- hyperactive Qualified Code(s): F90.2 - Attention-deficit hyperactivity disorder, combined type Plan: Patient has started Strattera 40 mg and feels it has helped her with some attention and focus though has slowed down a bit. She feels a little more unproductive. She is willing to increase dose of Strattera to 60 mg to see if it will help a bit more. She does report having a bit of a side effect of headache though has been manageable. She has a psychiatrist in [place] he will start to discuss her ADHD symptoms with as well. We are avoiding stimulant ADHD medication due to patient's blood pressure (2) HTN (hypertension): Code(s): I10 - Essential (primary) hypertension Category: Medical Qualifiers: Hypertension type: primary hypertension Qualified Code(s): I10 - Essential (primary) hypertension Plan: Patient reports her blood pressure has been better with more consistent use of hydrochlorothiazide. She reports she has been more physically active lately in trying to reduce her weight. Will continue with hydrochlorothiazide for now with goal blood pressure to remain below 140/90 Medications: New atomoxetine (Strattera) 60 mg PO DAILY 28 caps 3RF 28 days F90.2 - Attention- deficit hyperactivity disorder, combined type Discontinued atomoxetine (Strattera) Discontinued Reason: Doctor's Order 40 mg PO DAILY 3 weeks 21 caps 1RF F90.9 - Attention-deficit hyperactivity disorder, unspecified type
--- OUTSIDE RECORDS SUMMARY | 2025-01-11 12:06 | XMS_ITS | Data Portability ---
Author Organization [facility], [facility] () Address [address], [address] [place] [address] Assessment No assessment recorded. Plan of Treatment Reminders Order Date Submit Date Provider Last Modified By Organization Details Last Modified Time Details Appointments None record ed. Lab None record ed. Referral None record ed. Procedures None record ed. Surgeries None record ed. Imaging None record ed. Medication Orders None record ed. Patient TargetsNo targets recorded. Patient InstructionsNo instructions recorded. Reason for Referral None Reported. Medical Equipment None Reported. Medications Name Sig Start Date Stop Date Status Note LastModified by Organization Details LastModified Time gabapentin 600 mg tablet active Not Available Not Availabl e Not Available atenolol 25 mg tablet active Not Available Not Available No t Available trazodone 100 mg tablet active Not Available Not Available No t Available Vitals None Recorded Social History None recorded. Functional Status None recorded. Mental Status None recorded. Family History Nothing Reported. Medical History No medical history recorded. Gynecological HistoryNo gynecological history recorded. Obstetrics History GPAL:G 0 P 0 0 0 0 Past Encounters Encounter ID Performer Location Encounter Start Date Encounter Closed Date Diagnosis/Indication Diagnosis SNOMED-CT Code Diagnosis ICD10 Code Diagnosis Note [id number] [address] 03/03/2018 11:30:01 03/03/2018 11:58:40 Health Concerns Section Related Observation LastModified by Organization Detai ls LastModified Time None Recorded Concern Status LastModified by Organization Details LastModified Time None Recorded Advance Directives Directive None Recorded Payers Encounter Date Sequence Insurance Name Policy Number Policy Holguin Covered Member ID Holguin Member ID Guarantor Name 02/27/2018 1 [place] [employer] Mimi Solomon [id number] Mimi Solomon 02/27/2018 2 [place] [facility] Mimi Solomon [id number] Mimi Solomon OBGyn Episode No OBEpisode recorded.
--- OUTSIDE RECORDS SUMMARY | 2025-01-11 12:06 | XMS_ITS | Clinical Summary ---
Author Organization [facility] Address [address] [place] [address] Care Team Providers Care Decorator Store Name Role Phone Alexandru Cantrell MD Primary Care Provider [phone] Surgical History Surgery Date Site/Laterality Comments ESOPHAGOGASTRODUODENOSCOPY 08/25/14 [facility] propofol PROCEDURE: MS ESOPHAGOGASTRODUODENOSCOPY TRANSORAL DIAGNOSTIC; COMMENT: normal HERNIA REPAIR PROCEDURE: HISTORICAL HERNIA REPAIR/ING Medical History Medical History Date Comments GERD (gastroesophageal reflu x disease) 10/28/2013 DX:GERD (gastroesophageal re flux disease) ETOH abuse 10/28/2013 DX:ETOH abuse Anxiety 10/28/2013 DX:Anxiety Tobacco use disorder 10/28/2013 DX:Tobacco use disorder PTSD (post-traumatic stress disorder) DX:PTSD (post-traumatic stress disorder) Bipolar 2 disorder (CMS/HCC) DX: Bipolar 2 disorder (HCC) Family History Medical History Relation Name Comments Cirrhosis Father Hypertension Father Other: etoh abuse Father No Known Problems Maternal Grandfather hx unknown, states she doesnt know him Breast cancer Maternal Grandmother Diabetes Maternal Grandmother Hypertension Mother Other: etoh abuse Mother Other: inguinal hernia Mother No Known Problems Paternal Grandfather Diabetes Paternal Grandmother Emphysema Paternal Grandmother Other: cancer of unknown origin Paternal Grandmother Relation Name Status Comments Father Maternal Grandfather Maternal Grandmother Mother Alive Paternal Grandfather Paternal Grandmother Social History Tobacco Use Types Packs/Day Years Used Date Smoking Tobacco: Light Smoker Smokeless Tobacco: Never Alcohol Use Standard Drinks/Week Comments No 0 (1 standard drink = 0.6 oz pur e alcohol) Comments Unknown Sex and Gender Information Value Date Recorded Sex Assigned at Not on file Legal Sex Female 7:42 AM EST Gender Identity Not on file Sexual Orientation Not on file Obstetrics History Plan of Treatment Health Maintenance Due Date Last Done Comments Breast Cancer Screening 1978 DTaP,Tdap,and Td Vaccines (1 - Tdap) 1985 Hepatitis B Vaccines (1 of 3 - 19+ 3-dose series) 1997 Cervical Cancer Screening: P ap Smear 1999 COVID-19 Vaccine ( - 2023-2 5 season) 2024 Influenza Vaccine (#1) 2024 HIB Vaccines Aged Out No longer eligi ble based on patient's age to complete this topic HPV Vaccines Aged Out No longer eligi ble based on patient's age to complete this topic Hepatitis A Vaccines Aged Out No long er eligible based on patient's age to complete this topic IPV Vaccines Aged Out No longer eligi ble based on patient's age to complete this topic MMR Vaccines Aged Out No longer eligi ble based on patient's age to complete this topic Meningococcal ACWY Vaccine Aged Out N o longer eligible based on patient's age to complete this topic Meningococcal B Vacine Aged Out No lo nger eligible based on patient's age to complete this topic Pneumococcal Vaccine: Pediat rics (0 to 5 Years) and At-Risk Patients (6 to 64 Years) Aged Out No longer eligible b ased on patient's age to complete this topic RSV Immunization Patients Un vince 20 months Aged Out No longer eligible b ased on patient's age to complete this topic Varicella Vaccines Aged Out No longer eligible based on patient's age to complete this topic Care Teams Decorator Store Relationship Specialty Start Date End Date Alexandru Cantrell MD [address] [place] [address] PCP - General Internal Medicine 08/23/14
== END 2025-01-11 12:26 | disposition home or self-care (01) ==
LOC: HO.HMCH 10:59
PROVIDERS: PCP Physician Assistant; Visit Provider Physician Assistant
DX: I10 Essential (primary) hypertension (principal); F90.2 Attention-deficit hyperactivity disorder, combined type

== ENCOUNTER → 2025-01-11 10:59 | Outpatient (BNVA) | payer MEDICARE, MEDICAID, SELFPAY | PROVIDERS: PCP Physician Assistant; Visit Provider Physician Assistant | DX: F90.2 Attention-deficit hyperactivity disorder, combined type (principal); I10 Essential (primary) hypertension | CPT/HCPCS: 96127 ==

== ENCOUNTER 2025-01-20 13:22 | Outpatient (AMB) | payer MEDICARE, MEDICAID, SELFPAY ==
--- NOTE | 2025-01-20 13:23 | MHC.OFFVIS ---
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 Horizontal Required: No Boring Machine Operator Horizontal Services: Boring Machine Operator Horizontal Present Information Interpreted: clinical only System Technologist: System Technologist Present Allergies latex [LATEX] Allergy (Unknown, Verified 01/20/25 13:29) ITCHING bupropion [From Wellbutrin SR] Adverse Reaction (Intermediate, Verified 01/20/25 13:29) sleepiness Latex Allergy (Unknown, Uncoded 01/20/25 13:29) Unknown Medication List - Last Reconciled 01/20/25 by Leighann Maldonado CNM atenolol 25 mg PO DAILY 30 days atomoxetine (Strattera) 60 mg PO DAILY 28 days blood pressure kit-extra large As directed hydrochlorothiazide 12.5 mg PO DAILY 30 days meloxicam 15 mg PO DAILY 30 days Is last menstrual period known: Yes Last menstrual period: 01/08/25 HPI 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 She struggles with her weight. She has says she is very active she tries to eat well she is a mom of 3 and very busy around the house and loves to do active things with the kids biking and walking.. She is a smoker she feels she is doing well down to 2 or 3 cigarettes a day.. She is working on her blood pressure and it was good today. She has had numbness in her fingers and she is waiting on a nerve conduction study to see what is up with that.. She is concerned about family history of colon cancer she had an uncle and a grand parent the from colon cancer. She is due for mammogram and thinks it is scheduled but she will check on that. She also has a big concern she wants to address today in the she finds herself generally speaking not constipated in fact has 1-2 bowel movements a day and she keeps herself lose by drinking milk she is not what she would consider lactose intolerant but it helps her go to the bathroom. However when she pushes down she finds she feels the stool gets stuck and she is pushing out stool gets pushed into a pocket. She has found herself needing to digitally help herself. Her largest baby was 7 lb flus she does not remember having to push very long though perhaps she did with 1 child. [facility] Medical History Bipolar disorder HTN (hypertension) Surgical History H/O hernia repair Family History Maternal Grandmother Diabetes Heart disease HTN (hypertension) Cervical cancer Sister Lupus Social History Household Members: Children Housing: Apartment Alcohol intake: current Alcohol intake frequency: holidays/special occasions only Alcohol type: beer Patient Tobacco Use Status: Current someday Tobacco user Cigarettes Per Day: 3 Years Smoked: 30 e-Cigarette/Vaping Use: Never Used Substance Use Type: Marijuana service: No Current occupational status: unemployed and disabled 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 General: healthy appearing, comfortable, no acute distress, well developed and alert Nutritional Appearance: average body habitus Orientation/consciousness: patient oriented x3 Limitations: no limitations HEENT Head: Yes normocephalic Neck Neck: Yes normal visual inspection Chest Chest palpation & inspection: normal inspection of the chest Breast/axilla inspection: normal inspection of the breasts and normal inspection of the axillae Breast/axilla palpation: normal palpation of the breasts and normal palpation of the axillae Resp Effort & Inspection: normal respiratory effort GI Inspection: Yes normal to inspection, No Abdominal wall edema and No distended Palpation (GI): Soft to palpation and nontender Other: Vagina pink and moist redundant vaginal tissue noted cervix posterior difficult to visualize but long close thick mobile nontender uterus mobile nontender difficult to feel full contour secondary to adipose. Able to feel slight weakness in rectovaginal wall where stool is palpable approximately 4-5 inches hi in rectum. Patient performed Kegel extremely well using all associated muscles with extremely good tone and length of contraction. With elevation of structures, General: Yes bladder normal to palpation External Female Exam: normal external appearance and normal appearance of the urethra Speculum Exam - Vagina: normal appearance of the vagina, normal palpation and normal vaginal discharge Speculum Exam - Cervix: normal appearance of the cervix, normal palpation and nontender Bimanual exam- vagina & uterus: normal bimanual exam, normal palpation, uterine size normal, bladder normal to palpation, consistency normal, normal palpation, uterine mobility normal, uterine shape normal, No Cervical tenderness present, non-tender and no cervical motion tenderness Bimanual Exam- Adnexa, other: normal adnexae, no masses, normal and No adnexal tenderness Neuro General: patient oriented x3 Assessment & Plan Assessment & Plan (1) Cervical cancer screening: Code(s): Z12.4 - Encounter for screening for malignant neoplasm of cervix Category: Medical (2) Women's annual routine gynecological examination: Code(s): Z01.419 - Encounter for gynecological examination (general) (routine) without abnormal findings Category: Medical (3) HTN (hypertension): Code(s): I10 - Essential (primary) hypertension Category: Medical Qualifiers: Hypertension type: primary hypertension Qualified Code(s): I10 - Essential (primary) hypertension (4) Paresthesia of hand, bilateral: Code(s): R20.2 - Paresthesia of skin Category: Medical (5) Tobacco dependence: Code(s): F17.200 - Nicotine dependence, unspecified, uncomplicated Category: Medical (6) Family history of colon cancer: Code(s): Z80.0 - Family history of malignant neoplasm of digestive organs Category: Medical (7) Rectocele: Comment: Patient feels a weakness in her rectovaginal such that is sometimes stool bulges towards the vagina when straining. Suggest patient start with Gastroenterology as she was referred there in 2022 and has a family history of colon cancer as well that she should be screened for. Code(s): N81.6 - Rectocele Category: Medical Plan -----Discussed in this visit the following: healthy balanced diet, regular and consistent exercise, getting recommended health screens, doing the best she can for her particular health concerns, kegel exercises, pap smear screening and followup recommendations, mammography screening and SBE, normal changes in cycles in her life stage--- . See my recommendations for following up with Gastroenterology for recommendations on the rectovaginal wall weakness and colon cancer screening as well. Suggest to to patient that working on weight loss would be probably 1 of the more beneficial things that she can do overall to help additionally she is very careful to avoid constipation with her diet so that is acting in her favor currently. Recommend scheduling her mammogram. she is working one or two health issues at a time, numbness smoking and blood pressure and also the issue with circulation in her fingers and numbness and tingling and she will be having a nerve conduction study soon discussed the other contributing factors with weight. She has extremely good tone with her Kegel's so that is helping her as well. 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 I suggest she start with her children's pediatricians as if it was known that she was a carrier in their pregnancies then possibly they would have had screening. In any case the [facility] records are not currently available except through Health information Management. Timeframe/Date Comment rtc 1 yr, schedule mammo w pcc re gastroenterolgy refferral and other health issues Coding Level of Care Code Est Pt Prev Care 40-64y(70887) Diagnoses Cervical cancer screening Z12.4 Women's annual routine gynecological examination Z01.419 Primary hypertension I10 Hypertension type: primary hypertension Paresthesia of hand, bilateral R20.2 Tobacco dependence F17.200 Family history of colon cancer Z80.0 Rectocele N81.6
[2025-01-20 13:27] VITALS: BP 126/78; BMI 40.8
--- OUTSIDE RECORDS SUMMARY | 2025-01-20 13:40 | XMS_ITS | Clinical Summary ---
Author Organization [facility] Address [address] [place] [address] Care Team Providers Care High Pressure Kettle Operator Name Role Phone Alexandru Cantrell MD Primary Care Provider [phone] Surgical History Surgery Date Site/Laterality Comments ESOPHAGOGASTRODUODENOSCOPY 08/25/14 [facility] propofol PROCEDURE: [place] ESOPHAGOGASTRODUODENOSCOPY TRANSORAL DIAGNOSTIC; COMMENT: normal HERNIA REPAIR [...] 1978 DTaP,Tdap,and Td Vaccines (1 - Tdap) 1997 Hepatitis B Vaccines (1 of 3 - [...] age to complete this topic Care Teams High Pressure Kettle Operator Relationship Specialty Start Date End Date Alexandru Cantrell MD [address] [place] [address] PCP - General Internal Medicine 08/23/14
== END 2025-01-20 13:53 | disposition home or self-care (01) ==
LOC: HO.HWSM 13:22
PROVIDERS: PCP Physician Assistant; Visit Provider Advanced Practice Midwife
DX: Z01.419 Encounter for gynecological examination (general) (routine) without abnormal findings (principal)
CPT/HCPCS: G0101

== ENCOUNTER → 2025-01-20 13:22 | Outpatient (BNVA) | payer MEDICARE, MEDICAID, SELFPAY | PROVIDERS: PCP Physician Assistant; Visit Provider Advanced Practice Midwife | DX: Z01.419 Encounter for gynecological examination (general) (routine) without abnormal findings (principal); N81.6 Rectocele; I10 Essential (primary) hypertension; R20.2 Paresthesia of skin; F17.210 Nicotine dependence, cigarettes, uncomplicated; Z80.0 Family history of malignant neoplasm of digestive organs | CPT/HCPCS: G0101 ==

== ENCOUNTER 2025-01-26 07:48 | Outpatient (REF) | payer MEDICARE, MEDICAID, SELFPAY ==
--- NOTE | 2025-01-26 07:52 | EMG_ITS ---
Bilateral median and ulnar motor and sensory studies were performed. Bilateral radial sensory studies were performed. Bilateral median and lateral antecubital brachial sensory studies were performed and paraspinal muscles were tested with a needle. IMPRESSION: Moderate left and zoqb-qg-obkeimwh right median neuropathy across carpal tunnel. MD TORI Mccray/ORIANA / [id number]
--- OUTSIDE RECORDS SUMMARY | 2025-01-26 07:52 | XMS_ITS | Data Portability ---
Author Organization [facility] Maternal Medicine, OLGA LIDIA_ALAYNA FLOOD (ProfGlenn) Address [address], [address] [place] [address] Assessment No assessment recorded. Plan of Treatment [...] SNOMED-CT Code Diagnosis ICD10 Code Diagnosis Note [id number] [address] 03/03/2018 11:30:01 03/03/2018 11:58:40 Health Concerns Section Related Observation LastModified by Organization Detai ls LastModified Time None Recorded Concern Status LastModified by Organization Details LastModified Time None Recorded Advance Directives Directive None Recorded Payers Encounter Date Sequence Insurance Name Policy Number Policy Holguin Covered Member ID Holguin Member ID Guarantor Name 02/27/2018 1 [place] [employer] Mimi Solomon [id number] Mimi Solomon 02/27/2018 2 MED[place]ID[place] [facility] Mimi Solomon [id number] Mimi Solomon OBGyn Episode No OBEpisode recorded.
--- OUTSIDE RECORDS SUMMARY | 2025-01-26 07:52 | XMS_ITS | Clinical Summary ---
Author Organization [facility] Address [address] [place] [address] Care Team Providers Care Ball Point Splitter Name Role Phone Alexandru Cantrell MD Primary Care Provider [phone] Surgical History Surgery Date Site/Laterality Comments ESOPHAGOGASTRODUODENOSCOPY 08/25/14 [facility] propofol PROCEDURE: [place] ESOPHAGOGASTRODUODENOSCOPY TRANSORAL DIAGNOSTIC; COMMENT: normal HERNIA REPAIR [...] age to complete this topic Care Teams Ball Point Splitter Relationship Specialty Start Date End Date Alexandru Cantrell MD [address] [place] [address] PCP - General Internal Medicine 08/23/14
== END 2025-01-26 07:49 | disposition home or self-care (01) ==
LOC: HO.NEURO 07:48
PROVIDERS: PCP Physician Assistant; Visit Provider Physician Assistant
DX: R20.2 Paresthesia of skin (principal)
CPT/HCPCS: 95886; 95913

== ENCOUNTER 2025-02-08 | Outpatient (REF) | payer MEDICARE, MEDICAID, SELFPAY ==
--- OUTSIDE RECORDS SUMMARY | 2025-05-27 12:43 | XMS_ITS | Data Portability ---
Author Organization [facility], [facility] (Prof.) Address [address], [address] [place] [address] Assessment No assessment recorded. Plan of Treatment [...] SNOMED-CT Code Diagnosis ICD10 Code Diagnosis Note [id number] Paulo Metcalf MD [address] [address] 03/03/2018 11:30:01 03/03/2018 11:58:40 Health Concerns Section Related Observation LastModified by Organization Detai ls LastModified Time None Recorded Concern Status LastModified by Organization Details LastModified Time None Recorded Advance Directives Directive None Recorded Payers Insurance Date Sequence Insurance Name Policy Number Policy Holguin Covered Member ID Holguin Member ID Guarantor Name 04/08/2018 1 [place] [employer] Mimi Solomon [id number] Mimi Solomon 04/08/2018 2 [place] [facility] Mimi Solomon [id number] Mimi Solomon OBGyn Episode No OBEpisode recorded.
== END 2025-02-08 00:01 | disposition home or self-care (01) ==
LOC: CF
PROVIDERS: PCP Physician Assistant
DX: G56.01 Carpal tunnel syndrome, right upper limb (principal)
CPT/HCPCS: 99202

== ENCOUNTER 2025-02-08 12:58 | Outpatient (AMB) | payer MEDICARE, MEDICAID, SELFPAY ==
[2025-02-08 12:59] VITALS: BMI 40.8
--- NOTE | 2025-02-08 12:59 | A.OFFVIS_ITS ---
Vital Signs 02/08/25 12:59 Height 5 ft 9 in Weight 276 lb BMI 40.8 Intake Visit Reasons: New Pt - Rt Hand Numbness & Tingling - EMG 01/13/25 Intake Note: Mimi is a 44 year old right hand dominant female who presents today as new patient with complaints of Right Hand Numbness and Tingling. IMPRESSION: Moderate left and vkej-is-cnrscmsi right median neuropathy across carpal tunnel. Allergies latex [LATEX] Allergy (Unknown, Verified 01/20/25 13:29) ITCHING bupropion [From Wellbutrin SR] Adverse Reaction (Intermediate, Verified 01/20/25 13:29) sleepiness Latex Allergy (Unknown, Uncoded 01/20/25 13:29) Unknown HPI HPI New Pt - Rt Hand Numbness & Tingling - EMG 01/13/25: Details: Mimi is a 44 year old right hand dominant female who presents today as new patient with complaints of Right Hand Numbness and Tingling. Patient reports that this pain is intermittent, daily, worse at night. No other acute complaints or concerns this time. IMPRESSION: Moderate left and jnab-pa-arnjkvlk right median neuropathy across carpal tunnel. [facility] Medical History Bipolar disorder HTN (hypertension) Surgical History H/O hernia repair Family History Maternal Grandmother Diabetes Heart disease HTN (hypertension) Cervical cancer Sister Lupus Social History Household Members: Children Housing: Apartment Alcohol intake: current Alcohol intake frequency: holidays/special occasions only Alcohol type: beer Patient Tobacco Use Status: Current someday Tobacco user Cigarettes Per Day: 3 Years Smoked: 30 e-Cigarette/Vaping Use: Never Used Substance Use Type: Marijuana service: No Current occupational status: unemployed and disabled 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 Good APB muscle firing and good finger cross. Vascular: Capillary refill brisk. ROM: Patient can make a fist and extend all their digits. Skin: No lacerations or abrasions noted. General: No ecchymosis. No erythema or evidence of infection. Results Reviewed Results Reviewed: IMPRESSION: Moderate left and fjcg-iv-kuffyxaa right median neuropathy across carpal tunnel. MD TORI Mccray/ORIANA Assessment & Plan Assessment & Plan (1) Right carpal tunnel syndrome: Code(s): G56.01 - Carpal tunnel syndrome, right upper limb Category: Medical Plan 1. Carpal tunnel syndrome, right Symptoms intermittent, daily, worse at night I educated the patient about the condition. I discussed both operative and nonoperative treatment options. The patient would like to proceed with surgery. The risks and benefits of operative treatment were discussed with the patient and the patient wishes to proceed with surgery. These risks include, but are not limited to, risk of damage to blood vessels, nerves, tendons, infection, recurrence, incomplete relief of preoperative symptoms, persistent pain, possible need for further surgery, and the risks associated with regional blocks and/or anesthesia. Plan is to take the patient to the operating room at some point in the next few weeks for the following procedures: 1. Right carpal tunnel release under local All of the preoperative paperwork including the consent was discussed today. All of the patient's questions were answered in the clinic today. The patient understands that they will be in contact with our marine firer to discuss scheduling their procedure. Patient denies diabetes, blood thinners, asthma, heart issues, lung issues, kidney issues, or current smoking. Coding Level of Care Code New Pt Level 4 (30669) Diagnoses Right carpal tunnel syndrome G56.01
--- OUTSIDE RECORDS SUMMARY | 2025-02-08 14:33 | XMS_ITS | Clinical Summary ---
Author Organization [facility] Address [address] [place] [address] Care Team Providers Care Machine Erector Name Role Phone Alexandru Cantrell MD Primary Care Provider [phone] Surgical History Surgery Date Site/Laterality Comments ESOPHAGOGASTRODUODENOSCOPY 08/25/14 [facility] propofol PROCEDURE: [place] ESOPHAGOGASTRODUODENOSCOPY TRANSORAL DIAGNOSTIC; COMMENT: normal HERNIA REPAIR [...] age to complete this topic Care Teams Machine Erector Relationship Specialty Start Date End Date Alexandru Cantrell MD [address] [place] [address] PCP - General Internal Medicine 08/23/14
== END 2025-02-08 13:16 | disposition home or self-care (01) ==
PROVIDERS: PCP Physician Assistant
DX: G56.01 Carpal tunnel syndrome, right upper limb (principal)
CPT/HCPCS: 99204

== ENCOUNTER 2025-02-22 13:01 | Outpatient (AMB) | payer MEDICARE, MEDICAID, SELFPAY ==
--- NOTE | 2025-02-22 13:42 | A.OFFPSYCH_ITS ---
Intake Intake Visit Reasons: consultation Supervisor Paint Required: No Allergies latex [LATEX] Allergy (Unknown, Verified 01/20/25 13:29) ITCHING bupropion [From Wellbutrin SR] Adverse Reaction (Intermediate, Verified 01/20/25 13:29) sleepiness Latex Allergy (Unknown, Uncoded 01/20/25 13:29) Unknown Medication List - Last Reconciled 02/22/25 by Anita Godfrey APRN atenolol 25 mg PO DAILY atomoxetine (Strattera) 60 mg PO DAILY 28 days blood pressure kit-extra large As directed hydrochlorothiazide 12.5 mg PO DAILY 30 days meloxicam 15 mg PO DAILY 30 days HPI- Psychiatric Chief Complaint: consultation HPI Narrative: pt referred by PCP for evaulation of possible ADHD. Pt reports she was diagnosed with Bipolar Disorder and PTSD in past. She had a LD including reading comprehension delay and dyslexia. She does not recall what else; she had sepcial education classes as a child. She was in therapy at age 3 and she is not sure why. She thinks she was not on medication until age 19. She has been tried on a number of medications in the past and she can't recall the names of them except prozac gabapentin, and lithium. she reports she was tried on manyothers. she says she either had the opposite effect from them or negative side effects inclusing excessive sedation. She did not graduate from . She got at age 13 and was onher own raising her son at age 14. she has five children with five different fathers. she has good relationship with all 5 children. never had dcf involvement. she has never ebeen psychiatrically hospitalized. She used alcohol in past excessively but stopped on her own. she deos use THC twive a day and it calmsher; it has never made her paranoid, anxious or elated and impulsive. She has no histroy of angela. no period of elation, no period of sleep lessness and over productivity. no histroy of impulsive high risk behavior, no overspending, no gambling, no drug use. no periods of psychosis. pt reports periods of feeling depressed. she reports the depression often is because she is overwhelmed with activity around her,demands, noise, talking. she gets frustrated esaily but reports not feeling angry for no reason. she can get overexcited trying to get the kids out of the house for school or some other outing but once they are all on their way she feels calmer. PHQ9= 12 SAMUEL&= 2. ADHD self report scale = 18 (anything over 13 is strongly predictive of ADHD) Past Psychiatric History: no IPLOC; 15 + yrs outpt at [facility] Subjective Subjective Subjective Medication Compliance: Yes Side effects from medications: No Review of Systems Medical Review of Systems: unchanged Mental Status Exam Mental Status Exam Patient Appearance: Well Grooomed and Appropriate Patient Orientation: Person, Place, Time and Situation Level of Consciousness: Awake, Appropriate and Restless Patient Behavior: Appropriate, Talkative, Cooperative and Restless Mood Description: Appropriate and Cheerful Affect Description: Appropriate and Cheerful Patient Cognition Impaired: No Ability to Follow Directions: Good Speech Pattern: Difficulty Finding Words, Appropriate and Loud (slightly) Memory Description: Intact Hallucinations: None Delusions: Not Present Thought Process: Distracted Thought Content: positive for Intact and positive for Loose Associations Judgement: Good Assessment and Plan Assessment & Plan (1) ADHD: Status: Acute Qualifiers: Attention deficit-hyperactivity disorder type: combined inattentive- hyperactive Qualified Code(s): F90.2 - Attention-deficit hyperactivity disorder, combined type Code(s): F90.9 - Attention-deficit hyperactivity disorder, unspecified type Plan plan: EKG ordered If EKG normal recommend extended release Adderall follow u in 4 weeks with me and then refer back to PCP Orders: Orders ECG 12 lead EKG Today F90.2 - Attention-deficit hyperactivity disorder, combined type Counseling and coordination of Care Pt. Self Management counseling: Mod caffeine/ETOH intake, Nutrition education and improvement, Sleep hygiene, Behavior activation and General coping skills Medication management counseling: Effectiveness, Side effects, Dosing range, Duration, Drug interaction and Adherence Diagnosis and Prognosis Counseling: Accuracy of diagnosis, Prognosis over time, Impact of diagnosis on life functions, Impact of family relationship and Problematic behaviors secondary to diagnosis Details: I spent 75 minutes reviewing the record, seeing the patient and documenting in the medical record. Counseling provided to the patient/caregiver as outlined below. Addressed patient/caregiver concerns regarding current medication regime including effective adherence. Addressed patient/caregiver concerns regarding diagnosis and prognosis including accuracy of diagnosis, prognosis over time, impact of diagnosis. Addressed patient/caregiver concerns regarding impact of recent str essors. [facility] Medical History Bipolar disorder HTN (hypertension) Surgical History H/O hernia repair Family History Maternal Grandmother Diabetes Heart disease HTN (hypertension) Cervical cancer Sister Lupus Social History Household Members: Children Housing: Apartment Alcohol intake: current Alcohol intake frequency: holidays/special occasions only Alcohol type: beer Patient Tobacco Use Status: Current someday Tobacco user Cigarettes Per Day: 3 Years Smoked: 30 e-Cigarette/Vaping Use: Never Used Substance Use Type: Marijuana service: No Current occupational status: unemployed and disabled 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
== END 2025-02-22 13:53 | disposition home or self-care (01) ==
LOC: HO.HOP 13:01
PROVIDERS: PCP Physician Assistant; Visit Provider Clinical Nurse Specialist Psychiatric/Mental Health
DX: F90.2 Attention-deficit hyperactivity disorder, combined type (principal)
CPT/HCPCS: 90792

== ENCOUNTER → 2025-02-22 13:01 | Outpatient (BNVA) | payer MEDICARE, MEDICAID, SELFPAY | PROVIDERS: PCP Physician Assistant; Visit Provider Clinical Nurse Specialist Psychiatric/Mental Health | DX: F90.2 Attention-deficit hyperactivity disorder, combined type (principal); Z71.89 Other specified counseling | CPT/HCPCS: 90792 ==

== ENCOUNTER → 2025-03-08 11:18 | Outpatient (REF) | payer MEDICARE, MEDICAID, SELFPAY ==
--- NOTE | 2025-03-08 11:23 | ECG_ITS ---
Test Reason : ATT DEF HYPERACT D/O Blood Pressure : */* mmHG Vent. Rate : 76 BPM Atrial Rate : 76 BPM P-R Int : 120 ms QRS Dur : 110 ms QT Int : 374 ms P-R-T Axes : 32 78 7 degrees QTcB Int : 420 ms Normal sinus rhythm Minimal voltage criteria for LVH, may be normal variant ( [place] product ) Borderline ECG When compared with ECG of 27-Jun-2013 15:56, No significant change was found Referred By: Anita Godfrey Electronically Signed By: Wilner Lea
--- OUTSIDE RECORDS SUMMARY | 2025-03-08 13:39 | XMS_ITS | Data Portability ---
Author Organization [facility] Maternal Medicine, OLGA LIDIA_ALAYNA FLOOD (ProfGlenn) Address [address], [address] [place] [address] Assessment No assessment recorded. Plan of Treatment [...] SNOMED-CT Code Diagnosis ICD10 Code Diagnosis Note [id number] [address] 03/03/2018 11:30:01 03/03/2018 11:58:40 Health Concerns Section Related Observation LastModified by Organization Detai ls LastModified Time None Recorded Concern Status LastModified by Organization Details LastModified Time None Recorded Advance Directives Directive None Recorded Payers Encounter Date Sequence Insurance Name Policy Number Policy Holguin Covered Member ID Holguin Member ID Guarantor Name 02/27/2018 1 [place] [employer] Mimi Solomon [id number] Mimi Solomon 02/27/2018 2 MED[place]ID-[place]: [facility] Mimi Solomon [id number] Mimi Solomon OBGyn Episode No OBEpisode recorded.
--- OUTSIDE RECORDS SUMMARY | 2025-03-08 13:39 | XMS_ITS | Clinical Summary ---
Author Organization [facility] Address [address] [place] [address] Care Team Providers Care Centerless Grinding Machine Adjuster Name Role Phone Alexandru Cantrell MD Primary Care Provider [phone] Surgical History Surgery Date Site/Laterality Comments ESOPHAGOGASTRODUODENOSCOPY 08/25/14 [facility] propofol PROCEDURE: [place] ESOPHAGOGASTRODUODENOSCOPY TRANSORAL DIAGNOSTIC; COMMENT: normal HERNIA REPAIR [...] age to complete this topic Care Teams Centerless Grinding Machine Adjuster Relationship Specialty Start Date End Date Alexandru Cantrell MD [address] [place] [address] PCP - General Internal Medicine 08/23/14
== END ==
LOC: HO.CARD 11:18
PROVIDERS: PCP Physician Assistant; Visit Provider Clinical Nurse Specialist Psychiatric/Mental Health
DX: F90.2 Attention-deficit hyperactivity disorder, combined type (principal)
CPT/HCPCS: 93005

== ENCOUNTER → 2025-03-08 11:23 | Outpatient (BNV) | payer MEDICARE, MEDICAID, SELFPAY | PROVIDERS: PCP Physician Assistant; Visit Provider Internal Medicine Cardiovascular Disease | DX: F90.9 Attention-deficit hyperactivity disorder, unspecified type (principal) | CPT/HCPCS: 93010 ==

== ENCOUNTER 2025-04-06 10:50 | Outpatient (AMB) | payer MEDICARE, MEDICAID, SELFPAY ==
--- NOTE | 2025-04-06 11:14 | MHC.OFFVISPS ---
Intake Intake Visit Reasons: f/u consultation Technical Account Manager Required: No Allergies latex [LATEX] Allergy (Unknown, Verified 01/20/25 13:29) ITCHING bupropion [From Wellbutrin SR] Adverse Reaction (Intermediate, Verified 01/20/25 13:29) sleepiness Latex Allergy (Unknown, Uncoded 01/20/25 13:29) Unknown Medication List - Last Reconciled 04/06/25 by Anita Godfrey APRN atenolol 25 mg PO DAILY atomoxetine (Strattera) 60 mg PO DAILY 28 days blood pressure kit-extra large As directed hydrochlorothiazide 12.5 mg PO DAILY 30 days meloxicam 15 mg PO DAILY 30 days HPI- Psychiatric Chief Complaint: f/u consultation HPI Narrative: pt here for ADHD follow up. EKG reviewed, no change since last ekg done; normal sinus. no chest pain, no SOB. She is being treated for BP with atenolol and HCTZ. She takes BP daily at home. ADHD self report completed- meets criteria for ADHD. PHQ9=8 and GAD7= 1. sleep and appetite intact Past Psychiatric History: no IPLOC; 15 + yrs outpt at [facility] Subjective Subjective Subjective Medication Compliance: Yes Side effects from medications: No Review of Systems Medical Review of Systems: unchanged Mental Status Exam Mental Status Exam Patient Appearance: Well Grooomed and Appropriate Patient Orientation: Person, Place, Time and Situation Level of Consciousness: Awake and Appropriate Patient Behavior: Appropriate and Cooperative Mood Description: Cheerful Affect Description: Cheerful Patient Cognition Impaired: No Ability to Follow Directions: Good Speech Pattern: Clear and Appropriate Memory Description: Intact Hallucinations: None Delusions: Not Present Thought Process: Intact and Goal Oriented Thought Content: positive for Intact and positive for Goal Oriented Judgement: Good Assessment and Plan Assessment & Plan (1) ADHD: Status: Acute Qualifiers: Attention deficit-hyperactivity disorder type: combined inattentive-hyperactive Qualified Code(s): F90.2 - Attention-deficit hyperactivity disorder, combined type Code(s): F90.9 - Attention-deficit hyperactivity disorder, unspecified type Plan pt will cotninut to check BP daily and report any HTN advised if any chest pain, severe headache or SOB to stop adderall and go to ED, call 911, or call office retrun in 4 weeks pt stopped straterra on own over a month ago Medications: New dextroamphetamine-amphetamine 20 mg ER (Adderall XR) Partial Fill upon patient request. 20 mg PO QAM 30 caps 0RF Discontinued atomoxetine (Strattera) Discontinued Reason: Doctor's Order 60 mg PO DAILY 28 days 28 caps 3RF F90.2 - Attention-deficit hyperactivity disorder, combined type Counseling and coordination of Care Pt. Self Management counseling: Exercise, Maintenance-social rhythm, Nutrition education and improvement, Behavior activation and General coping skills Medication management counseling: Effectiveness, Side effects, Dosing range, Duration, Drug interaction and Adherence Diagnosis and Prognosis Counseling: Accuracy of diagnosis, Prognosis over time, Impact of diagnosis on life functions, Impact of family relationship, Problematic behaviors secondary to diagnosis and Adequacy of current interventions Details: I spent 40 minutes reviewing the record, seeing the patient and documenting in the medical record. Counseling provided to the patient/caregiver as outlined below. Addressed patient/caregiver concerns regarding current medication regime including effective adherence. Addressed patient/caregiver concerns regarding diagnosis and prognosis including accuracy of diagnosis, prognosis over time, impact of diagnosis. Addressed patient/caregiver concerns regarding impact of recent stressors. 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
--- OUTSIDE RECORDS SUMMARY | 2025-04-06 12:29 | XMS_ITS | Clinical Summary ---
Author Organization [facility] Address [address] [place] [address] Care Team Providers Care Plant And Equipment Worker Name Role Phone Alexandru Cantrell MD Primary Care Provider [phone] Surgical History Surgery Date Site/Laterality Comments ESOPHAGOGASTRODUODENOSCOPY 08/25/14 [facility] propofol PROCEDURE: [place] ESOPHAGOGASTRODUODENOSCOPY TRANSORAL DIAGNOSTIC; COMMENT: normal HERNIA REPAIR PROCEDURE: HISTORICAL HERNIA REPAIR/ING Medical History Medical History Date Comments GERD (gastroesophageal reflu x disease) 10/28/2013 DX:GERD (gastroesophageal re flux disease) ETOH abuse 10/28/2013 DX:ETOH abuse Anxiety 10/28/2013 DX:Anxiety Tobacco use disorder 10/28/2013 DX:Tobacco use disorder PTSD (post-traumatic stress disorder) DX:PTSD (post-traumatic stress disorder) Bipolar 2 disorder (CMS/HCC V24, CMS/HCC V28) DX:Bipolar 2 disorder (HCC) Family History Medical History [...] - 2023-2 5 season) 2024 Influenza Vaccine (Season Ended) 2025 HIB Vaccines Aged Out No longer eligi [...] age to complete this topic Meningococcal B Vaccine Aged Out No l onger eligible based on patient's age to complete [...] age to complete this topic Care Teams Plant And Equipment Worker Relationship Specialty Start Date End Date Alexandru Cantrell MD [address] [place] [address] PCP - General Internal Medicine 08/23/14
--- OUTSIDE RECORDS SUMMARY | 2025-04-06 12:29 | XMS_ITS | Data Portability ---
Author Organization [facility] Maternal Medicine, [facility] Address [address], [address] [place] [address] Assessment No assessment recorded. Plan of Treatment [...] SNOMED-CT Code Diagnosis ICD10 Code Diagnosis Note [id number] Paulo Metcalf MD [address] [address] 03/03/2018 11:30:01 03/03/2018 11:58:40 Health Concerns Section Related Observation LastModified by Organization Detai ls LastModified Time None Recorded Concern Status LastModified by Organization Details LastModified Time None Recorded Advance Directives Directive None Recorded Payers Encounter Date Sequence Insurance Name Policy Number Policy Holguin Covered Member ID Holguin Member ID Guarantor Name 02/27/2018 1 [place] [employer] Mimi Solomon [id number] Mimi Solomon 02/27/2018 2 [place] [facility] Mimi Solomon [id number] Mimi Solomon OBGyn Episode No OBEpisode recorded.
== END 2025-04-06 11:24 | disposition home or self-care (01) ==
LOC: HO.HOP 10:50
PROVIDERS: PCP Physician Assistant; Visit Provider Clinical Nurse Specialist Psychiatric/Mental Health
DX: F90.2 Attention-deficit hyperactivity disorder, combined type (principal)
CPT/HCPCS: 99214

== ENCOUNTER → 2025-04-06 10:50 | Outpatient (BNVA) | payer MEDICARE, MEDICAID, SELFPAY | PROVIDERS: PCP Physician Assistant; Visit Provider Clinical Nurse Specialist Psychiatric/Mental Health | DX: F90.2 Attention-deficit hyperactivity disorder, combined type (principal) | CPT/HCPCS: 99212 ==

== ENCOUNTER 2025-05-20 10:40 | Outpatient (AMB) | payer MEDICARE, MEDICAID, SELFPAY ==
--- NOTE | 2025-05-20 11:07 | A.OFFPSYCH_ITS ---
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 took Focalin 10 mg in am and 15 mg in afternoon. She did well on this with no side effects but felt she could benefit from slightly higher dose. no mood changes; no palpiations no SOB. no agitation; sleep and appetite intact. Past Psychiatric History: no IPLOC; 17 + yrs outpt at [facility] [address] Subjective Subjective Subjective Medication Compliance: Yes Side effects from medications: No Review of Systems Medical Review of Systems: unchanged Mental Status Exam Mental Status Exam Patient Appearance: Well Grooomed and Appropriate Patient Orientation: Person, Place, Time and Situation Level of Consciousness: Awake and Alert Patient Behavior: Appropriate, Cooperative and Good Eye Contact Mood Description: Happy and Appropriate Affect Description: Happy Patient Cognition Impaired: No Ability to Follow Directions: Good Speech Pattern: Clear and Appropriate Memory Description: Intact Delusions: Not Present Thought Process: Intact and Distracted Thought Content: positive for Intact Judgement: Good Assessment and Plan Assessment & Plan (1) ADHD: Status: Acute Qualifiers: Attention deficit-hyperactivity disorder type: combined inattentive- hyperactive Qualified Code(s): F90.2 - Attention-deficit hyperactivity disorder, combined type Code(s): F90.9 - Attention-deficit hyperactivity disorder, unspecified type Plan change focalin to extended release and add a 10 mg tab for breakthrough symptoms for afternoon if needed return in 4 weeks Medications: New dexmethylphenidate ER (Focalin XR) Partial Fill upon patient request. 25 mg PO QAM 30 caps 0RF F90.2 - Attention-deficit hyperactivity disorder, combined type dexmethylphenidate ER (Focalin XR) Partial Fill upon patient request. 25 mg PO QAM 30 caps 0RF F90.2 - Attention-deficit hyperactivity disorder, combined type Changed From dexmethylphenidate (Focalin) Partial Fill upon patient request. 10 mg PO QAM 30 tabs 0RF F90.2 - Attention-deficit hyperactivity disorder, combined type To dexmethylphenidate (Focalin) Partial Fill upon patient request. 10 mg PO DAILY@1500 30 tabs 0RF F90.2 - Attention-deficit hyperactivity disorder, combined type Counseling and coordination of Care Pt. Self Management counseling: Light exposure, Maintenance-social rhythm, Med illness tx adherence, Mindfulness and Behavior activation Medication management counseling: Effectiveness, Side effects, Dosing range, Duration, Drug interaction, Adherence and Other (managing heat intolerance and risk for sunburn on stimulants) Diagnosis and Prognosis Counseling: Accuracy of diagnosis, Prognosis over time, Impact of diagnosis on life functions and Adequacy of current interventions Details: I spent 35 minutes reviewing the record, seeing the patient and documenting in the medical record. Counseling provided to the patient/caregiver as outlined below. Addressed patient/caregiver concerns regarding current medication regime including effective adherence. Addressed patient/caregiver concerns regarding diagnosis and prognosis including accuracy of diagnosis, prognosis over time, impact of diagnosis. Addressed patient/caregiver concerns regarding impact of recent stressors. 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
--- OUTSIDE RECORDS SUMMARY | 2025-05-20 12:08 | XMS_ITS | Data Portability ---
Author Organization [facility], [facility] () Address [address], [address] [place] [address] Assessment No assessment recorded. Plan of Treatment [...] SNOMED-CT Code Diagnosis ICD10 Code Diagnosis Note [id number] Paulo Metcalf MD [address] [address] 03/03/2018 11:30:01 03/03/2018 11:58:40 Health Concerns Section Related Observation LastModified by Organization Detai ls LastModified Time None Recorded Concern Status LastModified by Organization Details LastModified Time None Recorded Advance Directives Directive None Recorded Payers Insurance Date Sequence Insurance Name Policy Number Policy Holguin Covered Member ID Holguin Member ID Guarantor Name 04/08/2018 1 [place] [employer] Mimi Solomon [id number] Mimi Solomon 04/08/2018 2 [place] [facility] Mimi Solomon [id number] Mimi Solomon OBGyn Episode No OBEpisode recorded.
== END 2025-05-20 11:18 | disposition home or self-care (01) ==
LOC: HO.HOP 10:40
PROVIDERS: PCP Physician Assistant; Visit Provider Clinical Nurse Specialist Psychiatric/Mental Health
DX: F90.2 Attention-deficit hyperactivity disorder, combined type (principal)
CPT/HCPCS: 99214

== ENCOUNTER → 2025-05-20 10:40 | Outpatient (BNVA) | payer MEDICARE, MEDICAID, SELFPAY | PROVIDERS: PCP Physician Assistant; Visit Provider Clinical Nurse Specialist Psychiatric/Mental Health | DX: F90.2 Attention-deficit hyperactivity disorder, combined type (principal) | CPT/HCPCS: 99212 ==

== ENCOUNTER 2025-06-17 10:48 | Outpatient (AMB) | payer MEDICARE, MEDICAID, SELFPAY ==
--- NOTE | 2025-06-17 10:59 | A.OFFPSYCH_ITS ---
Intake Intake Visit Reasons: follow up Binding Folder Machine Required: No Allergies latex (LATEX) Allergy (Unknown, Verified 01/20/25 13:29) ITCHING bupropion (From Wellbutrin SR) Adverse Reaction (Intermediate, Verified 01/20/25 13:29) sleepiness Latex Allergy (Unknown, Uncoded 01/20/25 13:29) Unknown Medication List - Last Reconciled 06/17/25 by Anita Godfrey APRN atenolol 25 mg PO DAILY blood pressure kit-extra large As directed dexmethylphenidate (Focalin) 10 mg PO DAILY@1500 dexmethylphenidate ER (Focalin XR) 25 mg PO QAM hydrochlorothiazide 12.5 mg PO DAILY 30 days meloxicam 15 mg PO DAILY 30 days HPI- Psychiatric Chief Complaint: follow up HPI Narrative: Pt here for follow up re:ADHD. Tolerating the focalin xr 25 MG AND Focalin 10 mg in afternoon. She did well on this with no side effects. she decided not to take medication on a few very hot day aduring heat wave which is reasonable. Her mood is much better; she has more hope for future; she is more motivated; she started exercising again; no palpiations no SOB. no agitation; sleep and appetite intact. she denies any SI or Hi Past Psychiatric History: no IPLOC; 15 + yrs outpt at [facility] Subjective Subjective Subjective Medication Compliance: Yes Side effects from medications: No Review of Systems Medical Review of Systems: unchanged Mental Status Exam Mental Status Exam Patient Appearance: Well Grooomed and Appropriate Patient Orientation: Person, Place, Time and Situation Level of Consciousness: Awake and Alert Patient Behavior: Appropriate, Cooperative and Good Eye Contact Mood Description: Happy and Appropriate Affect Description: Happy Patient Cognition Impaired: No Ability to Follow Directions: Good Speech Pattern: Clear and Appropriate Memory Description: Intact Delusions: Not Present Thought Process: Intact and Distracted Thought Content: positive for Intact Judgement: Good Assessment and Plan Assessment & Plan (1) ADHD: Status: Acute Qualifiers: Attention deficit-hyperactivity disorder type: combined inattentive- hyperactive Qualified Code(s): F90.2 - Attention-deficit hyperactivity disorder, combined type Code(s): F90.9 - Attention-deficit hyperactivity disorder, unspecified type Plan continue focalin extended release 25mg in am and may take 10 mg tab for breakthrough symptoms for afternoon if needed return in 8 weeks if pr stable will refer back to PCP Medications: Refilled dexmethylphenidate ER (Focalin XR) Partial Fill upon patient request. 25 mg PO QAM 30 caps 0RF F90.2 - Attention-deficit hyperactivity disorder, combined type dexmethylphenidate (Focalin) Partial Fill upon patient request. 10 mg PO DAILY@1500 30 tabs 0RF F90.2 - Attention-deficit hyperactivity disorder, combined type Counseling and coordination of Care Pt. Self Management counseling: Light exposure, Maintenance-social rhythm, Med illness tx adherence, Mindfulness and Behavior activation Medication management counseling: Effectiveness, Side effects, Dosing range, Duration, Drug interaction, Adherence and Other (managing heat intolerance and risk for sunburn on stimulants) Diagnosis and Prognosis Counseling: Accuracy of diagnosis, Prognosis over time, Impact of diagnosis on life functions and Adequacy of current interventions Details: I spent 35 minutes reviewing the record, seeing the patient and documenting in the medical record. Counseling provided to the patient/caregiver as outlined below. Addressed patien t/caregiver concerns regarding current medication regime including effective adherence. Addressed patient/caregiver concerns regarding diagnosis and prognosis including accuracy of diagnosis, prognosis over time, impact of diagnosis. Addressed patient/caregiver concerns regarding impact of recent stressors. [facility] Medical History Bipolar disorder HTN (hypertension) Surgical History H/O hernia repair Family History Maternal Grandmother Diabetes Heart disease HTN (hypertension) Cervical cancer Sister Lupus Social History Household Members: Children Housing: Apartment Alcohol intake: current Alcohol intake frequency: holidays/special occasions only Alcohol type: beer Patient Tobacco Use Status: Current someday Tobacco user Cigarettes Per Day: 3 Years Smoked: 30 e-Cigarette/Vaping Use: Never Used Substance Use Type: Marijuana service: No Current occupational status: unemployed and disabled 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
--- OUTSIDE RECORDS SUMMARY | 2025-06-17 11:28 | XMS_ITS | Clinical Summary ---
Author Organization [facility] Address [address] [place] [address] Care Team Providers Care Gear Repair Supervisor Name Role Phone Alexandru Cantrell MD Primary Care Provider [phone] Surgical History Surgery Date Site/Laterality Comments ESOPHAGOGASTRODUODENOSCOPY 08/25/14 [facility] propofol PROCEDURE: CA ESOPHAGOGASTRODUODENOSCOPY TRANSORAL DIAGNOSTIC; COMMENT: normal HERNIA REPAIR [...] 2023-2 5 season) 2024 Influenza Vaccine (#1) 2025 HIB Vaccines Aged Out No longer [...] 5 Years) and At-Risk Patients (6 to 49 Years) Aged Out No longer eligible b ased on patient's age to complete this topic RSV Immunization Patients Un vince 20 months Aged Out No longer eligible b ased on patient's age to complete this topic Varicella Vaccines Aged Out No longer eligible based on patient's age to complete this topic Care Teams Gear Repair Supervisor Relationship Specialty Start Date End Date Alexandru Cantrell MD [address] [place] [id number] PCP - General Internal Medicine 08/23/14
--- OUTSIDE RECORDS SUMMARY | 2025-06-17 11:28 | XMS_ITS | Data Portability ---
Author Organization [facility], [facility] (Prof.) Address [address], [address] [place] [address] Assessment No assessment recorded. Plan of Treatment [...] SNOMED-CT Code Diagnosis ICD10 Code Diagnosis Note [id number] Paulo Metcalf MD [address] [address] 03/03/2018 11:30:01 03/03/2018 11:58:40 Health Concerns Section Related Observation LastModified by Organization Detai ls LastModified Time None Recorded Concern Status LastModified by Organization Details LastModified Time None Recorded Advance Directives Directive None Recorded Payers Insurance Date Sequence Insurance Name Policy Number Policy Holguin Covered Member ID Holguin Member ID Guarantor Name 04/08/2018 1 [place] [employer] Mimi Solomon [id number] Mimi Solomon 04/08/2018 2 [place]: [facility] Mimi Solomon [id number] Mimi Solomon OBGyn Episode No OBEpisode recorded.
== END 2025-06-17 12:25 | disposition home or self-care (01) ==
LOC: HO.HOP 10:48
PROVIDERS: PCP Physician Assistant; Visit Provider Clinical Nurse Specialist Psychiatric/Mental Health
DX: F90.2 Attention-deficit hyperactivity disorder, combined type (principal)
CPT/HCPCS: 99214

== ENCOUNTER → 2025-06-17 10:48 | Outpatient (BNVA) | payer MEDICARE, MEDICAID, SELFPAY | PROVIDERS: PCP Physician Assistant; Visit Provider Clinical Nurse Specialist Psychiatric/Mental Health | DX: F90.2 Attention-deficit hyperactivity disorder, combined type (principal) | CPT/HCPCS: 99212 ==

== ENCOUNTER → 2025-10-26 10:44 | Outpatient (BNVA) | payer MEDICARE, MEDICAID, SELFPAY | PROVIDERS: PCP Physician Assistant; Visit Provider Physician Assistant | DX: F90.2 Attention-deficit hyperactivity disorder, combined type (principal) | CPT/HCPCS: 99212 ==

== ENCOUNTER 2025-10-26 11:08 | Outpatient (AMB) | payer MEDICARE, MEDICAID, SELFPAY ==
--- NOTE | 2025-10-26 11:51 | A.OFFPSYCH_ITS ---
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 Allergies latex (LATEX) Allergy (Unknown, Verified 01/20/25 13:29) ITCHING bupropion (From Wellbutrin SR) Adverse Reaction (Intermediate, Verified 01/20/25 13:29) sleepiness Latex Allergy (Unknown, Uncoded 01/20/25 13:29) Unknown Medication List - Last Reconciled 10/26/25 by Anita Godfrey APRN atenolol 25 mg PO DAILY blood pressure kit-extra large As directed dexmethylphenidate (Focalin) 10 mg PO DAILY@1500 dexmethylphenidate ER (Focalin XR) 25 mg PO QAM hydrochlorothiazide 12.5 mg PO DAILY 30 days meloxicam 15 mg PO DAILY 30 days HPI- Psychiatric Chief Complaint: f/u consultation HPI Narrative: Pt here for follow up re:ADHD. Tolerating the focalin xr 25 MG AND Focalin 10 mg in afternoon. She did well on this with no side effects. Her mood is much better; she has more hope for future; she is more motivated; she started exercising again; no palpiations no SOB. no agitation; sleep and appetite intact. she denies any SI or Hi Past Psychiatric History: no IPLOC; 15 + yrs outpt at [facility] Subjective Subjective Medication Compliance: Yes Side effects from medications: No Review of Systems Medical Review of Systems: unchanged Mental Status Exam Mental Status Exam Patient Appearance: Well Grooomed and Appropriate Patient Orientation: Person, Place, Time and Situation Level of Consciousness: Awake and Alert Patient Behavior: Appropriate, Cooperative and Good Eye Contact Mood Description: Happy and Appropriate Affect Description: Happy Patient Cognition Impaired: No Ability to Follow Directions: Good Speech Pattern: Clear and Appropriate Memory Description: Intact Delusions: Not Present Thought Process: Intact and Distracted Thought Content: positive for Intact Judgement: Good Assessment and Plan Assessment & Plan (1) ADHD: Status: Acute Qualifiers: Attention deficit-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 10 mg PO DAILY@1500 30 tabs 0RF F90.2 - Attention-deficit hyperactivity disorder, combined type dexmethylphenidate ER (Focalin XR) Partial Fill upon patient request. 25 mg PO QAM 30 caps 0RF F90.2 - Attention-deficit hyperactivity disorder, combined type Counseling and coordination of Care Pt. Self Management counseling: Light exposure, Maintenance-social rhythm, Med illness tx adherence, Mindfulness and Behavior activation Medication management counseling: Effectiveness, Side effects, Dosing range, Duration, Drug interaction, Adherence and Other (managing heat intolerance and risk for sunburn on stimulants) Diagnosis and Prognosis Counseling: Accuracy of diagnosis, Prognosis over time, Impact of diagnosis on life functions and Adequacy of current interventions Details: I spent 30 minutes reviewing the record, seeing the patient and documenting in the medical record. Counseling provided to the patient/caregiver as outlined below. Addressed patient/caregiver concerns regarding current medication regime including effective adherence. Addressed patient/caregiver concerns regarding diagnosis and prognosis including accuracy of diagnosis, prognosis over time, impact of diagnosis. Addressed patient/caregiver concerns regarding impact of recent stressors. [facility] Medical History Bipolar disorder HTN (hypertension) Surgical History H/O hernia repair Family History Maternal Grandmother Diabetes Heart disease HTN (hypertension) Cervical cancer Sister Lupus Social History Household Members: Children Housing: Apartment Alcohol intake: current Alcohol intake frequency: holidays/special occasions only Alcohol type: beer Patient Tobacco Use Status: Current someday Tobacco user Cigarettes Per Day: 3 Years Smoked: 30 e-Cigarette/Vaping Use: Never Used Substance Use Type: Marijuana service: No Current occupational status: unemployed and disabled 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
== END 2025-10-26 13:22 | disposition home or self-care (01) ==
LOC: HO.HOP 11:08
PROVIDERS: PCP Physician Assistant; Visit Provider Clinical Nurse Specialist Psychiatric/Mental Health
DX: F90.2 Attention-deficit hyperactivity disorder, combined type (principal)
CPT/HCPCS: 99214